=== PATIENT | male | born 1935 | race Caucasian/White ===

== ENCOUNTER → 2017-06-12 08:28 | Outpatient (CLI) | payer MEDICARE, BC, SELFPAY ==
[2017-06-12] VITALS (8 sets, daily range): BP systolic 103–150; BP diastolic 58–79; PULSE 60–76; RESP 16–18; TEMP 36.3–37.2; O2SAT 95–99; BMI 24.8
[2017-06-12] MEDS: Immune Globulin 20 gm Premixed Solution IV ×2 (08:46→11:05)
[2017-06-12 09:20] LABS: Anion Gap 9 (5-15); BUN 17 mg/dL (7-18); BUN/Creat Ratio 14.4 RATIO (10-20); Calcium,Total 8.8 mg/dL (8.5-10.1); Chloride 106 mmol/L (98-107); Creatinine, Serum 1.18 mg/dL (0.70-1.30); EST Glomerular Filtration Rate 63 mL/min (>60); Est Glom Filt Rate - Afr Amer 76 mL/min (>60); Estimated Creatinine Clearance 49.11 ml/min; Glucose 98 mg/dL (74-106); Sodium Level 139 mmol/L (136-145)
[2017-06-12] MEDS: Immune Globulin 10 gm Premixed Solution IV (14:05)
== END ==
PROVIDERS: Family Provider Family Medicine Geriatric Medicine; PCP Family Medicine Geriatric Medicine; Visit Provider Psychiatry & Neurology Neurology
DX: G61.81 Chronic inflammatory demyelinating polyneuritis (principal)
CPT/HCPCS: 96365; 80048; A4216; J1568

== ENCOUNTER → 2017-07-03 08:24 | Outpatient (CLI) | payer MEDICARE, BC, SELFPAY ==
[2017-07-03] VITALS (8 sets, daily range): BP systolic 131–171; BP diastolic 70–80; PULSE 61–70; RESP 16–18; TEMP 36.1–37.1; O2SAT 98–100; BMI 23.9
[2017-07-03] MEDS: Immune Globulin 20 gm Premixed Solution IV ×3 (08:42→12:25)
[2017-07-03 09:13] LABS: Anion Gap 8 (5-15); BUN 18 mg/dL (7-18); BUN/Creat Ratio 17.1 RATIO (10-20); Calcium,Total 8.6 mg/dL (8.5-10.1); Chloride 106 mmol/L (98-107); Creatinine, Serum 1.05 mg/dL (0.70-1.30); EST Glomerular Filtration Rate 72 mL/min (>60); Est Glom Filt Rate - Afr Amer 88 mL/min (>60); Estimated Creatinine Clearance 57.05 ml/min; Glucose 96 mg/dL (74-106); Potassium 5.4 mmol/L (3.5-5.1); Sodium Level 138 mmol/L (136-145)
[2017-07-03] MEDS: Immune Globulin 10 gm Premixed Solution IV (13:52)
== END ==
PROVIDERS: Family Provider Family Medicine Geriatric Medicine; PCP Family Medicine Geriatric Medicine; Visit Provider Psychiatry & Neurology Neurology
DX: G61.81 Chronic inflammatory demyelinating polyneuritis (principal)
CPT/HCPCS: 96365; 96366 ×2; 80048; A4216; J1568

== ENCOUNTER → 2017-07-24 08:36 | Outpatient (CLI) | payer MEDICARE, BC, SELFPAY ==
[2017-07-24] VITALS (8 sets, daily range): BP systolic 119–156; BP diastolic 60–79; PULSE 63–84; RESP 16–18; TEMP 36.4–37; O2SAT 95–100; BMI 24.3
[2017-07-24] MEDS: Immune Globulin 20 gm Premixed Solution IV ×3 (08:50→12:34)
[2017-07-24 09:14] LABS: Anion Gap 8 (5-15); BUN 15 mg/dL (7-18); BUN/Creat Ratio 14.6 RATIO (10-20); Calcium,Total 8.3 mg/dL (8.5-10.1); Chloride 108 mmol/L (98-107); Creatinine, Serum 1.03 mg/dL (0.70-1.30); EST Glomerular Filtration Rate 74 mL/min (>60); Est Glom Filt Rate - Afr Amer 89 mL/min (>60); Glucose 95 mg/dL (74-106); Potassium 4.2 mmol/L (3.5-5.1); Sodium Level 139 mmol/L (136-145)
[2017-07-24] MEDS: Immune Globulin 10 gm Premixed Solution IV (13:57)
== END ==
PROVIDERS: Family Provider Family Medicine Geriatric Medicine; PCP Family Medicine Geriatric Medicine; Visit Provider Psychiatry & Neurology Neurology
DX: G61.81 Chronic inflammatory demyelinating polyneuritis (principal)
CPT/HCPCS: 96365; 96366 ×2; 36415; 80048; A4216; J1568

== ENCOUNTER → 2017-08-14 08:33 | Outpatient (CLI) | payer MEDICARE, BC, SELFPAY ==
[2017-08-14] VITALS (8 sets, daily range): BP systolic 135–170; BP diastolic 70–82; PULSE 54–84; RESP 16–18; TEMP 36.3–36.9; O2SAT 96–99
[2017-08-14] MEDS: Immune Globulin 20 gm Premixed Solution 8.8 GM IV (09:13)
[2017-08-14 09:40] LABS: Anion Gap 8 (5-15); BUN 14 mg/dL (7-18); BUN/Creat Ratio 12.6 RATIO (10-20); Calcium,Total 8.6 mg/dL (8.5-10.1); Chloride 108 mmol/L (98-107); Creatinine, Serum 1.11 mg/dL (0.70-1.30); EST Glomerular Filtration Rate 68 mL/min (>60); Est Glom Filt Rate - Afr Amer 82 mL/min (>60); Glucose 102 mg/dL (74-106); Potassium 4.2 mmol/L (3.5-5.1); Sodium Level 138 mmol/L (136-145)
[2017-08-14] MEDS: Immune Globulin 20 gm Premixed Solution IV ×2 (11:35→13:11)
[2017-08-14] MEDS: Immune Globulin 10 gm Premixed Solution IV (14:40)
== END ==
PROVIDERS: Family Provider Family Medicine Geriatric Medicine; PCP Family Medicine Geriatric Medicine; Visit Provider Psychiatry & Neurology Neurology
DX: G61.81 Chronic inflammatory demyelinating polyneuritis (principal)
CPT/HCPCS: 96365; 96366; 80048; A4216; J1568

== ENCOUNTER → 2017-09-04 08:21 | Outpatient (CLI) | payer MEDICARE, BC, SELFPAY ==
[2017-09-04] VITALS (8 sets, daily range): BP systolic 129–163; BP diastolic 66–87; PULSE 57–68; RESP 16–163; TEMP 36.4–36.8; O2SAT 95–99; BMI 24.7
[2017-09-04 08:44] LABS: Anion Gap 8 (5-15); BUN 17 mg/dL (7-18); BUN/Creat Ratio 15.3 RATIO (10-20); Calcium,Total 8.7 mg/dL (8.5-10.1); Chloride 109 mmol/L (98-107); Creatinine, Serum 1.11 mg/dL (0.70-1.30); EST Glomerular Filtration Rate 68 mL/min (>60); Est Glom Filt Rate - Afr Amer 82 mL/min (>60); Estimated Creatinine Clearance 52.21 ml/min; Glucose 101 mg/dL (74-106); Potassium 3.9 mmol/L (3.5-5.1); Sodium Level 142 mmol/L (136-145)
[2017-09-04] MEDS: Immune Globulin 20 gm Premixed Solution IV ×3 (08:54→12:30)
[2017-09-04] MEDS: Immune Globulin 10 gm Premixed Solution IV (14:01)
== END ==
PROVIDERS: Family Provider Family Medicine Geriatric Medicine; PCP Family Medicine Geriatric Medicine; Visit Provider Psychiatry & Neurology Neurology
DX: G61.81 Chronic inflammatory demyelinating polyneuritis (principal)
CPT/HCPCS: 96365 ×2; 96366 ×2; 80048; A4216; J1568

== ENCOUNTER → 2017-09-26 08:39 | Outpatient (CLI) | payer MEDICARE, BC, SELFPAY ==
[2017-09-26] VITALS (8 sets, daily range): BP systolic 145–168; BP diastolic 69–84; PULSE 55–64; RESP 16–18; TEMP 36.1–36.8
[2017-09-26] MEDS: Immune Globulin 20 gm Premixed Solution IV ×3 (09:13→12:50)
[2017-09-26 10:00] LABS: Anion Gap 9 (5-15); BUN 13 mg/dL (7-18); Calcium,Total 8.5 mg/dL (8.5-10.1); Chloride 109 mmol/L (98-107); Creatinine, Serum 1.08 mg/dL (0.70-1.30); EST Glomerular Filtration Rate 70 mL/min (>60); Est Glom Filt Rate - Afr Amer 85 mL/min (>60); Glucose 100 mg/dL (74-106); Sodium Level 142 mmol/L (136-145)
[2017-09-26] MEDS: Immune Globulin 10 gm Premixed Solution IV (14:17)
== END ==
PROVIDERS: Family Provider Family Medicine Geriatric Medicine; PCP Family Medicine Geriatric Medicine; Visit Provider Psychiatry & Neurology Neurology
DX: G61.81 Chronic inflammatory demyelinating polyneuritis (principal)
CPT/HCPCS: 96365; 96366; 80048; A4216; J1568

== ENCOUNTER → 2017-10-31 10:09 | Outpatient (CLI) | payer MEDICARE, BC, SELFPAY ==
[2017-10-31 15:56] LABS: Absolute Lymphocyte Count 3.11 X10^3/ul (0.83-4.51); Absolute Neutrophil Count 4.1 X10^3/uL (2.0-7.7); Basophil# 0.03 X10^3/uL; Basophil% 0.4 % (0-1); Eosinophil# 0.22 X10^3/uL; Eosinophils% 2.6 % (0-5); Hematocrit 39.1 % (40-54); Hemoglobin 12.8 g/dl (13.0-16.5); Lymphocyte # 3.11 X10^3/ul (4.0); Lymphocyte % 37.4 % (19-41); Mean Corp Hgb Conc 32.7 g/gl (32-36); Mean Corpuscular Volume 91.6 fL (80-94); Mean Platelet Vol. 9.9 fl (6.2-12.0); Monocyte# 0.86 X10^3/uL; Monocyte% 10.3 % (0-10); Neutrophil # 4.09 X10^3/uL (2.7-7.7); Neutrophil % 49.2 % (47-70); Platelet Count 230 K/mm3 (150-450); RBC Distribution Width CV 14.4 % (11.6-14.6); RBC Distribution Width SD 48.4 fl (35.1-43.9); Red Blood Count 4.27 M/mm3 (4.6-6.2); White Blood Count 8.3 K/mm3 (4.4-11.0)
[2017-10-31 16:06] LABS: POSITIVE COUNT NO; POSITIVE DIFFERENTIAL NO; POSITIVE MORPHOLOGY NO
[2017-10-31 16:17] LABS: ALB/GLOB Ratio 0.9 RATIO (0.9-2.4); AST(SGOT) 19 U/L (15-37); Alanine Aminotransfer ALT/SGPT 20 U/L (16-61); Albumin, Serum 3.7 g/dL (3.2-5.0); Alkaline Phosphatase 66 U/L (45-117); Anion Gap 9 (5-15); BUN 18 mg/dL (7-18); BUN/Creat Ratio 17.6 RATIO (10-20); Calcium,Total 8.2 mg/dL (8.5-10.1); Chloride 109 mmol/L (98-107); Creatinine, Serum 1.02 mg/dL (0.70-1.30); EST Glomerular Filtration Rate 75 mL/min (>60); Est Glom Filt Rate - Afr Amer 90 mL/min (>60); Glucose 97 mg/dL (74-106); Protein, Total 7.7 g/dL (6.4-8.2); Sodium Level 142 mmol/L (136-145); Thyroid Stim Hormone (TSH) 2.03 uIU/mL (0.358-3.74)
[2017-11-01 10:45] LABS: Vitamin D,25 Hydroxy 12.2 ng/mL (29.95-100.01)
== END ==
PROVIDERS: Family Provider Family Medicine Geriatric Medicine; PCP Family Medicine Geriatric Medicine; Visit Provider Family Medicine Geriatric Medicine
DX: R53.83 Other fatigue (principal); E55.9 Vitamin D deficiency, unspecified
CPT/HCPCS: 36415; 80053; 82306; 84443; 85025

== ENCOUNTER → 2017-11-06 08:19 | Outpatient (CLI) | payer MEDICARE, BC, SELFPAY ==
[2017-11-06] VITALS (7 sets, daily range): BP systolic 123–174; BP diastolic 64–78; PULSE 61–70; RESP 16; TEMP 36.7–36.8; O2SAT 97; BMI 24.5
[2017-11-06] MEDS: Immune Globulin 20 gm Premixed Solution IV ×3 (09:10→12:57)
[2017-11-06 09:36] LABS: Anion Gap 10 (5-15); BUN 14 mg/dL (7-18); BUN/Creat Ratio 11.9 RATIO (10-20); Calcium,Total 8.8 mg/dL (8.5-10.1); Chloride 105 mmol/L (98-107); Creatinine, Serum 1.18 mg/dL (0.70-1.30); EST Glomerular Filtration Rate 63 mL/min (>60); Est Glom Filt Rate - Afr Amer 76 mL/min (>60); Estimated Creatinine Clearance 48.31 ml/min; Glucose 97 mg/dL (74-106); Potassium 4.5 mmol/L (3.5-5.1); Sodium Level 142 mmol/L (136-145)
[2017-11-06] MEDS: Immune Globulin 10 gm Premixed Solution IV (14:21)
== END ==
PROVIDERS: Family Provider Family Medicine Geriatric Medicine; PCP Family Medicine Geriatric Medicine; Visit Provider Psychiatry & Neurology Neurology
DX: G61.81 Chronic inflammatory demyelinating polyneuritis (principal)
CPT/HCPCS: 96365; 96366 ×2; 80048; A4216; J1568

== ENCOUNTER → 2017-12-18 08:10 | Outpatient (CLI) | payer MEDICARE, BC, SELFPAY ==
[2017-12-18] VITALS (8 sets, daily range): BP systolic 122–159; BP diastolic 65–78; PULSE 58–68; RESP 16–18; TEMP 35.9–36.8; O2SAT 99; BMI 24.5
[2017-12-18] MEDS: Immune Globulin 20 gm Premixed Solution IV ×3 (09:07→13:19)
[2017-12-18 09:32] LABS: Anion Gap 12 (5-15); BUN 13 mg/dL (7-18); BUN/Creat Ratio 12.6 RATIO (10-20); Calcium,Total 8.4 mg/dL (8.5-10.1); Chloride 107 mmol/L (98-107); Creatinine, Serum 1.03 mg/dL (0.70-1.30); EST Glomerular Filtration Rate 74 mL/min (>60); Est Glom Filt Rate - Afr Amer 89 mL/min (>60); Glucose 98 mg/dL (74-106); Potassium 4.1 mmol/L (3.5-5.1); Sodium Level 143 mmol/L (136-145)
[2017-12-18] MEDS: Immune Globulin 10 gm Premixed Solution IV (15:08)
== END ==
PROVIDERS: Family Provider Family Medicine Geriatric Medicine; PCP Family Medicine Geriatric Medicine; Visit Provider Psychiatry & Neurology Neurology
DX: G61.81 Chronic inflammatory demyelinating polyneuritis (principal)
CPT/HCPCS: 96365; 96366 ×2; 80048; A4216; J1568

== ENCOUNTER → 2018-01-29 08:21 | Outpatient (CLI) | payer MEDICARE, BC, SELFPAY ==
[2018-01-29] VITALS (9 sets, daily range): BP systolic 129–173; BP diastolic 71–95; PULSE 60–64; RESP 15–18; TEMP 36.4–37.1; O2SAT 94–97
[2018-01-29] MEDS: Immune Globulin 10 gm Premixed Solution IV ×3 (09:04→11:18)
[2018-01-29 10:07] LABS: Anion Gap 9 (5-15); BUN 15 mg/dL (7-18); BUN/Creat Ratio 14.3 RATIO (10-20); Calcium,Total 8.6 mg/dL (8.5-10.1); Chloride 104 mmol/L (98-107); Creatinine, Serum 1.05 mg/dL (0.70-1.30); EST Glomerular Filtration Rate 72 mL/min (>60); Est Glom Filt Rate - Afr Amer 87 mL/min (>60); Glucose 97 mg/dL (74-106); Potassium 4.1 mmol/L (3.5-5.1); Sodium Level 139 mmol/L (136-145)
[2018-01-29] MEDS: Immune Globulin 20 gm Premixed Solution IV ×2 (12:10→13:32)
[2018-03-12 11:22] VITALS: BP 158/76; PULSE 58; RESP 16; TEMP 36.9; O2SAT 97
== END ==
PROVIDERS: Family Provider Family Medicine Geriatric Medicine; PCP Family Medicine Geriatric Medicine; Visit Provider Psychiatry & Neurology Neurology
DX: G61.81 Chronic inflammatory demyelinating polyneuritis (principal)
CPT/HCPCS: 96365; 96366; 80048; A4216; J1568

== ENCOUNTER → 2018-03-12 08:09 | Outpatient (CLI) | payer MEDICARE, BC, SELFPAY ==
[2018-03-12] VITALS (8 sets, daily range): BP systolic 127–175; BP diastolic 57–76; PULSE 60–75; RESP 15–18; TEMP 36.6–36.9; O2SAT 96–100
[2018-03-12] MEDS: Immune Globulin 20 gm Premixed Solution IV ×3 (09:00→12:52)
[2018-03-12 09:18] LABS: Anion Gap 10 (5-15); BUN 16 mg/dL (7-18); BUN/Creat Ratio 13.6 RATIO (10-20); Calcium,Total 8.6 mg/dL (8.5-10.1); Chloride 105 mmol/L (98-107); Creatinine, Serum 1.18 mg/dL (0.70-1.30); EST Glomerular Filtration Rate 63 mL/min (>60); Est Glom Filt Rate - Afr Amer 76 mL/min (>60); Glucose 101 mg/dL (74-106); Potassium 4.6 mmol/L (3.5-5.1); Sodium Level 139 mmol/L (136-145)
[2018-03-12] MEDS: Immune Globulin 10 gm Premixed Solution IV (14:24)
== END ==
PROVIDERS: Family Provider Family Medicine Geriatric Medicine; PCP Family Medicine Geriatric Medicine; Referring Provider Family Medicine Geriatric Medicine; Visit Provider Family Medicine Geriatric Medicine
DX: G61.81 Chronic inflammatory demyelinating polyneuritis (principal)
CPT/HCPCS: 96365; 96366 ×3; 80048; A4216; J1568

== ENCOUNTER → 2018-05-08 14:24 | Outpatient (CLI) | payer MEDICARE, BC, SELFPAY ==
[2017-12-18 08:32] VITALS: BMI 24.5
[2018-05-08 15:38] LABS: Absolute Lymphocyte Count 4.28 X10^3/ul (0.83-4.51); Absolute Neutrophil Count 4.3 X10^3/uL (2.0-7.7); Basophil# 0.03 X10^3/uL; Basophil% 0.3 % (0-1); Eosinophil# 0.18 X10^3/uL; Eosinophils% 1.9 % (0-5); Hematocrit 40.7 % (40-54); Hemoglobin 13.1 g/dl (13.0-16.5); Lymphocyte # 4.28 X10^3/ul (4.0); Lymphocyte % 45.1 % (19-41); Mean Corp Hgb Conc 32.2 g/gl (32-36); Mean Corpuscular Hgb 29.9 pg (27.0-32.0); Mean Corpuscular Volume 92.9 fL (80-94); Mean Platelet Vol. 10.5 fl (6.2-12.0); Monocyte# 0.67 X10^3/uL; Monocyte% 7.1 % (0-10); Neutrophil # 4.32 X10^3/uL (2.7-7.7); Neutrophil % 45.4 % (47-70); Platelet Count 254 K/mm3 (150-450); RBC Distribution Width CV 14.2 % (11.6-14.6); RBC Distribution Width SD 48.2 fl (35.1-43.9); Red Blood Count 4.38 M/mm3 (4.6-6.2); White Blood Count 9.5 K/mm3 (4.4-11.0)
[2018-05-08 15:45] LABS: POSITIVE COUNT NO; POSITIVE DIFFERENTIAL NO; POSITIVE MORPHOLOGY NO
[2018-05-08 15:53] LABS: ALB/GLOB Ratio 0.8 RATIO (0.9-2.4); AST(SGOT) 19 U/L (15-37); Alanine Aminotransfer ALT/SGPT 22 U/L (16-61); Albumin, Serum 3.7 g/dL (3.2-5.0); Alkaline Phosphatase 62 U/L (45-117); Anion Gap 7 (5-15); BUN 16 mg/dL (7-18); Calcium,Total 8.5 mg/dL (8.5-10.1); Chloride 106 mmol/L (98-107); Creatinine, Serum 1.07 mg/dL (0.70-1.30); EST Glomerular Filtration Rate 71 mL/min (>60); Est Glom Filt Rate - Afr Amer 85 mL/min (>60); Globulin 4.7 g/dL (2.2-4.2); Glucose 94 mg/dL (74-106); Potassium 4.4 mmol/L (3.5-5.1); Protein, Total 8.4 g/dL (6.4-8.2); Sodium Level 138 mmol/L (136-145); Thyroid Stim Hormone (TSH) 2.25 uIU/mL (0.358-3.74); Uric Acid 6.8 mg/dL (3.5-7.2)
== END ==
PROVIDERS: Family Provider Family Medicine Geriatric Medicine; PCP Family Medicine Geriatric Medicine; Visit Provider Family Medicine Geriatric Medicine
DX: I12.9 Hypertensive chronic kidney disease with stage 1 through stage 4 chronic kidney disease, or unspecified chronic kidney disease (principal); N18.3 Chronic kidney disease, stage 3 (moderate); M10.9 Gout, unspecified
CPT/HCPCS: 36415; 80053; 84443; 84550; 85025

== ENCOUNTER → 2018-07-16 08:38 | Outpatient (CLI) | payer MEDICARE, BC, SELFPAY ==
[2018-07-16 09:08] VITALS: BP 145/79; PULSE 60; RESP 16; TEMP 36.7; BMI 24.8
[2018-07-16] MEDS: Immune Globulin 20 gm Premixed Solution IV ×3 (09:08→12:43)
[2018-07-16 09:58] LABS: Anion Gap 4 (5-15); BUN 14 mg/dL (7-18); BUN/Creat Ratio 13.1 RATIO (10-20); Calcium,Total 8.1 mg/dL (8.5-10.1); Chloride 110 mmol/L (98-107); Creatinine, Serum 1.07 mg/dL (0.70-1.30); EST Glomerular Filtration Rate 71 mL/min (>60); Est Glom Filt Rate - Afr Amer 85 mL/min (>60); Estimated Creatinine Clearance 53.27 ml/min; Glucose 99 mg/dL (74-106); Sodium Level 138 mmol/L (136-145)
[2018-07-16] MEDS: Immune Globulin 10 gm Premixed Solution IV (14:20)
== END ==
PROVIDERS: Family Provider Family Medicine Geriatric Medicine; PCP Family Medicine Geriatric Medicine; Visit Provider Psychiatry & Neurology Neurology
DX: G61.81 Chronic inflammatory demyelinating polyneuritis (principal)
CPT/HCPCS: 96365; 96366 ×2; 80048; A4216; J1568

== ENCOUNTER → 2018-08-27 08:25 | Outpatient (CLI) | payer MEDICARE, BC, SELFPAY ==
[2018-07-16 09:08] VITALS: BMI 24.8
[2018-08-27 08:29] VITALS: BP 178/74; PULSE 70; RESP 16; TEMP 36.2; O2SAT 96; BMI 24.5
[2018-08-27] MEDS: Immune Globulin 20 gm Premixed Solution IV ×3 (08:46→12:16)
[2018-08-27 09:48] LABS: Anion Gap 7 (5-15); BUN 16 mg/dL (7-18); BUN/Creat Ratio 15.1 RATIO (10-20); Calcium,Total 8.6 mg/dL (8.5-10.1); Chloride 109 mmol/L (98-107); Creatinine, Serum 1.06 mg/dL (0.70-1.30); EST Glomerular Filtration Rate 71 mL/min (>60); Est Glom Filt Rate - Afr Amer 86 mL/min (>60); Estimated Creatinine Clearance 55.58 ml/min; Glucose 100 mg/dL (74-106); Potassium 5.4 mmol/L (3.5-5.1); Sodium Level 140 mmol/L (136-145)
[2018-08-27] MEDS: Immune Globulin 5 GM Premixed Solution IV ×2 (13:40→14:05)
== END ==
PROVIDERS: Family Provider Family Medicine Geriatric Medicine; PCP Family Medicine Geriatric Medicine; Referring Provider Psychiatry & Neurology Neurology; Visit Provider Psychiatry & Neurology Neurology
DX: G61.81 Chronic inflammatory demyelinating polyneuritis (principal)
CPT/HCPCS: 96365; 96366 ×2; 80048; A4216; J1568

== ENCOUNTER → 2018-10-08 08:42 | Outpatient (CLI) | payer MEDICARE, BC, SELFPAY ==
[2018-08-27 08:29] VITALS: BMI 24.5
[2018-10-08 09:00] VITALS: BP 166/81; PULSE 61; RESP 18; TEMP 36.7; O2SAT 97; BMI 24.5
[2018-10-08] MEDS: Immune Globulin 20 gm Premixed Solution IV ×3 (09:10→12:53)
[2018-10-08 09:32] LABS: Anion Gap 7 (5-15); BUN 10 mg/dL (7-18); BUN/Creat Ratio 8.9 RATIO (10-20); Calcium,Total 8.3 mg/dL (8.5-10.1); Chloride 106 mmol/L (98-107); Creatinine, Serum 1.12 mg/dL (0.70-1.30); EST Glomerular Filtration Rate 67 mL/min (>60); Est Glom Filt Rate - Afr Amer 81 mL/min (>60); Estimated Creatinine Clearance 51.73 ml/min; Glucose 105 mg/dL (74-106); Potassium 3.9 mmol/L (3.5-5.1); Sodium Level 139 mmol/L (136-145)
[2018-10-08] MEDS: Immune Globulin 10 gm Premixed Solution IV (14:21)
== END ==
PROVIDERS: Family Provider Family Medicine Geriatric Medicine; PCP Family Medicine Geriatric Medicine; Referring Provider Psychiatry & Neurology Neurology; Visit Provider Psychiatry & Neurology Neurology
DX: G61.81 Chronic inflammatory demyelinating polyneuritis (principal)
CPT/HCPCS: 96365; 96366; 80048; A4216; J1568

== ENCOUNTER → 2018-11-19 08:13 | Outpatient (CLI) | payer MEDICARE, BC, SELFPAY ==
[2018-10-08 09:00] VITALS: BMI 24.5
[2018-11-19 08:24] VITALS: BP 186/69; PULSE 61; RESP 16; TEMP 36.2; O2SAT 95; BMI 24.5
[2018-11-19] MEDS: Immune Globulin 20 gm Premixed Solution IV ×3 (08:42→12:34)
[2018-11-19] MEDS: Immune Globulin 10 gm Premixed Solution IV (14:27)
== END ==
PROVIDERS: Family Provider Family Medicine Geriatric Medicine; PCP Family Medicine Geriatric Medicine; Referring Provider Psychiatry & Neurology Neurology; Visit Provider Psychiatry & Neurology Neurology
DX: G61.81 Chronic inflammatory demyelinating polyneuritis (principal)
CPT/HCPCS: 96365; 96366 ×2; A4216; J1568

== ENCOUNTER → 2019-01-01 07:43 | Outpatient (CLI) | payer MEDICARE, BC, SELFPAY ==
[2018-11-19 08:24] VITALS: BMI 24.5
[2019-01-01 08:03] VITALS: BP 155/86; PULSE 68; RESP 16; TEMP 37.1; O2SAT 97; BMI 22.7
[2019-01-01] MEDS: Immune Globulin 20 gm Premixed Solution 35 BAG IV (08:38)
[2019-01-01 08:44] LABS: Anion Gap 4 (5-15); BUN 11 mg/dL (7-18); BUN/Creat Ratio 10.1 RATIO (10-20); Calcium,Total 8.4 mg/dL (8.5-10.1); Chloride 110 mmol/L (98-107); Creatinine, Serum 1.09 mg/dL (0.70-1.30); EST Glomerular Filtration Rate 69 mL/min (>60); Est Glom Filt Rate - Afr Amer 83 mL/min (>60); Estimated Creatinine Clearance 52.51 ml/min; Glucose 110 mg/dL (74-106); Potassium 3.9 mmol/L (3.5-5.1); Sodium Level 139 mmol/L (136-145)
[2019-01-01] MEDS: Immune Globulin 20 gm Premixed Solution 140 BAG IV ×2 (10:48→12:20)
[2019-01-01] MEDS: Immune Globulin 10 gm Premixed Solution 140 BAG IV (13:49)
== END ==
PROVIDERS: Family Provider Family Medicine Geriatric Medicine; PCP Family Medicine Geriatric Medicine; Referring Provider Psychiatry & Neurology Neurology; Visit Provider Psychiatry & Neurology Neurology
DX: G61.81 Chronic inflammatory demyelinating polyneuritis (principal)
CPT/HCPCS: 96365; 96366 ×2; 80048; A4216; J1568

== ENCOUNTER → 2019-02-11 08:18 | Outpatient (CLI) | payer MEDICARE, BC, SELFPAY ==
[2019-01-01 08:03] VITALS: BMI 22.7
[2019-02-11 08:29] VITALS: BP 162/79; PULSE 59; RESP 18; TEMP 36.1; O2SAT 99; BMI 23.6
[2019-02-11] MEDS: Immune Globulin 20 gm Premixed Solution 35 BAG IV (08:56)
[2019-02-11 09:10] LABS: Anion Gap 6 (5-15); BUN 16 mg/dL (7-18); BUN/Creat Ratio 15.4 RATIO (10-20); Calcium,Total 8.3 mg/dL (8.5-10.1); Chloride 109 mmol/L (98-107); Creatinine, Serum 1.04 mg/dL (0.70-1.30); EST Glomerular Filtration Rate 73 mL/min (>60); Est Glom Filt Rate - Afr Amer 88 mL/min (>60); Estimated Creatinine Clearance 55.71 ml/min; Glucose 106 mg/dL (74-106); Sodium Level 139 mmol/L (136-145)
[2019-02-11] MEDS: Immune Globulin 20 gm Premixed Solution 140 BAG IV ×2 (11:19→12:57)
[2019-02-11] MEDS: Immune Globulin 10 gm Premixed Solution 140 BAG IV (14:28)
--- NOTE | 2019-02-11 15:40 | NURSING ---
Unable to reach Dr. Ayala. Pt now vomiting. Rigors continue; [employer] called.
== END ==
PROVIDERS: Family Provider Family Medicine Geriatric Medicine; PCP Family Medicine Geriatric Medicine; Referring Provider Psychiatry & Neurology Neurology; Visit Provider Psychiatry & Neurology Neurology
DX: G61.81 Chronic inflammatory demyelinating polyneuritis (principal)
CPT/HCPCS: 96365; 96366 ×6; 80048; A4216; J1568

== ENCOUNTER 2019-02-11 16:13 | Emergency (ER) | payer MEDICARE, BC, SELFPAY ==
[2019-02-11 08:29] VITALS: BMI 23.6
[2019-02-11 16:14] VITALS: BP 182/87; BP 191/88; PULSE 100; PULSE 99; RESP 17; RESP 18; TEMP 37.7; O2SAT 97; BMI 25.2
[2019-02-11 16:24] VITALS: BP 182/87; PULSE 97; RESP 18; TEMP 37.7; O2SAT 95
--- NOTE | 2019-02-11 16:41 | ED.DCSUM_ITS ---
- ER Visit Summary Date of Service: 02/11/19 Chief Complaint: Nausea, vomiting, and shaking History of Present Illness: The patient is a 83 M who presents with nausea, vomiting, and shaking that began today. Patient was getting an infusion of IV immunoglobulin when he developed nausea and had one episode of vomiting. Patient states he began shaking all over. Patient denies any hematemesis or coffee-ground emesis. Patient admits to a fever of 100.7 during the infusion. Patient was then referred to the emergency department. Patient admits to some diffuse abdominal pain. Patient denies any diarrhea. Patient does admit to headache. Patient denies any chest pain or shortness of breath. Physical Examination: Vital signs are stable. Patient is afebrile. Patient is in no acute distress. Oral mucosa is pink and moist. Neck is supple. Trachea is midline. There is no JVD noted. Heart was regular rate and rhythm. Lungs are clear and equal bilaterally. Abdomen is soft. Bowel sounds are normal. There is no tenderness. There is no guarding noted. Skin is warm dry. Cranial nerves II through XII are intact. There are no focal motor or sensory deficits noted. Test Results: CBC and basic metabolic profile were essentially within normal tomas its. Urinalysis does not show any evidence of urinary tract infection. There is glucose in the urine. Emergency Department Course and Treatment: Patient was feeling better on reevaluation. Patient wants to go home. Patient was instructed to follow-up with his primary care physician and neurologist as scheduled. Patient understands and is agreeable with the plan. All questions were answered. Disposition: Discharge home Impression: Adverse medication reaction This note was generated with [employer] dictation software. It may contain incorrect words, spelling, and punctuation that were not noted in review of the chart prior to signing ED Disposition - Plan for ED Patient: Disposition: Home or Assisted Living Diagnosis: Adverse drug reaction Instructions: DRUG REACTION, Other Referrals: Tay Khoury Chi, MD [Primary Care Provider] - Keep [facility] appointment Se Ayala MD [STAFF PHYSICIAN] - Keep E[facility] appointment
[2019-02-11] MEDS: Ondansetron 4 MG/2 ML Vial IV (16:51)
[2019-02-11 17:23] LABS: Bacteria 0 SEEN /hpf (None Seen); Mucous, Urine 0 SEEN /hpf (<or=2+); White Blood Cells 0 SEEN /hpf (0-5)
[2019-02-11 17:34] LABS: Absolute Lymphocyte Count 0.56 X10^3/uL (0.83-4.51); Absolute Neutrophil Count 7.3 X10^3/uL (2.0-7.7); Basophil# 0.02 X10^3/uL; Basophil% 0.2 % (0-1); Eosinophil# 0.03 X10^3/uL; Eosinophils% 0.4 % (0-5); Hematocrit 37.9 % (40-54); Hemoglobin 12.6 g/dL (13.0-16.5); Lymphocyte # 0.56 X10^3/ul (4.0); Lymphocyte % 6.6 % (19-41); Mean Corp Hgb Conc 33.2 g/dL (32-36); Mean Corpuscular Hgb 30.7 pg (27.0-32.0); Mean Corpuscular Volume 92.4 fL (80-94); Mean Platelet Vol. 10.5 fl (6.2-12.0); Monocyte# 0.61 X10^3/uL; Monocyte% 7.2 % (0-10); NRBC Flagged by Analyzer 0 % (0-5); Neutrophil # 7.28 X10^3/uL (2.7-7.7); Neutrophil % 85.2 % (47-70); POSITIVE DIFFERENTIAL YES; Platelet Count 178 K/mm3 (150-450); RBC Distribution Width CV 13.8 % (11.6-14.6); RBC Distribution Width SD 46.8 fl (35.1-43.9); White Blood Count 8.5 K/mm3 (4.4-11.0)
[2019-02-11 17:36] LABS: Color, Urine Yellow (Yellow); Glucose, Dipstick 1000 mg/dl (Normal); Ketone-Dipstick Negative (Negative); Leukocyte Esterase-Dipstick Negative /ul (Negative); Nitrite-Dipstick Negative (Negative); Occult Blood-Urine 25 /ul (Negative); Protein-Dipstick 30 mg/dl (Negative); Urine Bilirubin Dipstick Negative (Negative); Urine Clarity Sl. Cloudy (Clear); Urine Urobilinogen Normal (Normal)
[2019-02-11 17:44] LABS: Differential Indicated SCAN CRITERIA MET
[2019-02-11 17:55] LABS: ALB/GLOB Ratio 0.6 RATIO (0.9-2.4); AST(SGOT) 16 U/L (15-37); Alanine Aminotransfer ALT/SGPT 16 U/L (16-61); Albumin, Serum 3.4 g/dL (3.2-5.0); Alkaline Phosphatase 62 U/L (45-117); Anion Gap 8 (5-15); BUN 14 mg/dL (7-18); BUN/Creat Ratio 12.4 RATIO (10-20); Calcium,Total 8.3 mg/dL (8.5-10.1); Chloride 102 mmol/L (98-107); Creatinine, Serum 1.13 mg/dL (0.70-1.30); EST Glomerular Filtration Rate 66 mL/min (>60); Est Glom Filt Rate - Afr Amer 80 mL/min (>60); Globulin 5.7 g/dL (2.2-4.2); Glucose 113 mg/dL (74-106); Lipase 195 U/L (73-393); Potassium 3.9 mmol/L (3.5-5.1); Protein, Total 9.1 g/dL (6.4-8.2); Sodium Level 135 mmol/L (136-145)
[2019-02-11 18:03] LABS: Amorphous Sediment 1+ URATE; Red Blood Cells-Urine 0-5 SEEN /hpf (0-5); Squamous Epithelial Cells - UA 0-5 SEEN /hpf (0-5)
[2019-02-11 18:19] VITALS: BP 139/75; PULSE 92; RESP 16; TEMP 37.4; O2SAT 96
[2019-02-11 18:29] LABS: Differential Comment SCANNED; Platelet Estimate ADEQUATE (ADEQ); Red Cell Morphology NORM C+C NORMAL (NORM C&C)
== END 2019-02-11 19:12 | disposition home or self-care (01) ==
PROVIDERS: Emergency Provider Emergency Medicine; Family Provider Family Medicine Geriatric Medicine; PCP Family Medicine Geriatric Medicine
DX: R11.2 Nausea with vomiting, unspecified (principal); R51 Headache; R10.9 Unspecified abdominal pain; R50.9 Fever, unspecified; M54.2 Cervicalgia; T50.Z15A Adverse effect of immunoglobulin, initial encounter; Y92.9 Unspecified place or not applicable; G61.81 Chronic inflammatory demyelinating polyneuritis; E78.00 Pure hypercholesterolemia, unspecified; E03.9 Hypothyroidism, unspecified; Z79.82 Long term (current) use of aspirin; Z79.899 Other long term (current) drug therapy
CPT/HCPCS: 80048; 80053; 81001; 83690; 85025; 96374; 99282; A4216; J1568; J2405

== ENCOUNTER → 2019-03-25 08:01 | Outpatient (CLI) | payer MEDICARE, BC, SELFPAY ==
[2019-03-25 10:50] VITALS: BP 180/77; PULSE 62; RESP 16; TEMP 36.6; O2SAT 97; BMI 24.7
[2019-03-25] MEDS: Immune Globulin 20 gm Premixed Solution 35 BAG IV (11:11)
[2019-03-25 11:39] LABS: Anion Gap 6 (5-15); BUN 16 mg/dL (7-18); BUN/Creat Ratio 14.8 RATIO (10-20); Calcium,Total 8.5 mg/dL (8.5-10.1); Chloride 110 mmol/L (98-107); Creatinine, Serum 1.08 mg/dL (0.70-1.30); EST Glomerular Filtration Rate 70 mL/min (>60); Est Glom Filt Rate - Afr Amer 84 mL/min (>60); Estimated Creatinine Clearance 53.64 ml/min; Glucose 135 mg/dL (74-106); Potassium 3.8 mmol/L (3.5-5.1); Sodium Level 142 mmol/L (136-145)
[2019-03-25] MEDS: Immune Globulin 10 gm Premixed Solution 140 BAG IV (13:29)
[2019-03-25] MEDS: Immune Globulin 5 GM Premixed Solution 140 BAG IV (14:24)
== END ==
PROVIDERS: Family Provider Family Medicine Geriatric Medicine; PCP Family Medicine Geriatric Medicine; Referring Provider Psychiatry & Neurology Neurology; Visit Provider Psychiatry & Neurology Neurology
DX: G61.81 Chronic inflammatory demyelinating polyneuritis (principal)
CPT/HCPCS: 96365; 96366 ×2; 80048; A4216; J1568

== ENCOUNTER → 2019-05-06 07:33 | Outpatient (CLI) | payer MEDICARE, BC, SELFPAY ==
[2019-03-25 10:50] VITALS: BMI 24.7
[2019-05-06 07:57] VITALS: BP 170/80; PULSE 60; RESP 16; TEMP 36; O2SAT 100; BMI 23.6
[2019-05-06] MEDS: Immune Globulin 20 gm Premixed Solution 35 BAG IV (08:24)
[2019-05-06] MEDS: Immune Globulin 10 gm Premixed Solution 140 BAG IV (10:41)
[2019-05-06] MEDS: Immune Globulin 5 GM Premixed Solution 140 BAG IV (11:27)
== END ==
PROVIDERS: Family Provider Family Medicine Geriatric Medicine; PCP Family Medicine Geriatric Medicine; Referring Provider Psychiatry & Neurology Neurology; Visit Provider Psychiatry & Neurology Neurology
DX: G61.81 Chronic inflammatory demyelinating polyneuritis (principal)
CPT/HCPCS: 96365; 96366; A4216; J1568

== ENCOUNTER → 2019-05-07 15:25 | Outpatient (CLI) | payer MEDICARE, BC, SELFPAY ==
[2019-05-06 07:57] VITALS: BMI 23.6
[2019-05-07 17:19] LABS: Absolute Lymphocyte Count 1.98 X10^3/uL (0.83-4.51); Absolute Neutrophil Count 3.6 X10^3/uL (2.0-7.7); Basophil# 0.04 X10^3/uL; Basophil% 0.6 % (0-1); Eosinophil# 0.14 X10^3/uL; Eosinophils% 2.1 % (0-5); Hematocrit 42.5 % (40-54); Hemoglobin 13.7 g/dL (13.0-16.5); Lymphocyte # 1.98 X10^3/ul (4.0); Mean Corp Hgb Conc 32.2 g/dL (32-36); Mean Corpuscular Hgb 29.8 pg (27.0-32.0); Mean Corpuscular Volume 92.4 fL (80-94); Mean Platelet Vol. 10.3 fl (6.2-12.0); Monocyte# 0.86 X10^3/uL; NRBC Flagged by Analyzer 0 % (0-5); Neutrophil # 3.58 X10^3/uL (2.7-7.7); Neutrophil % 54.1 % (47-70); Platelet Count 235 K/mm3 (150-450); RBC Distribution Width CV 13.9 % (11.6-14.6); RBC Distribution Width SD 47.2 fl (35.1-43.9); White Blood Count 6.6 K/mm3 (4.4-11.0)
[2019-05-07 17:38] LABS: Vitamin D,25 Hydroxy 23.3 ng/mL (29.95-100.01)
[2019-05-07 17:39] LABS: ALB/GLOB Ratio 0.7 RATIO (0.9-2.4); AST(SGOT) 23 U/L (15-37); Alanine Aminotransfer ALT/SGPT 24 U/L (16-61); Albumin, Serum 3.6 g/dL (3.2-5.0); Alkaline Phosphatase 65 U/L (45-117); Anion Gap 5 (5-15); BUN 14 mg/dL (7-18); BUN/Creat Ratio 11.5 RATIO (10-20); Calcium,Total 8.7 mg/dL (8.5-10.1); Chloride 104 mmol/L (98-107); Creatinine, Serum 1.22 mg/dL (0.70-1.30); EST Glomerular Filtration Rate 61 mL/min (>60); Est Glom Filt Rate - Afr Amer 73 mL/min (>60); Globulin 4.9 g/dL (2.2-4.2); Glucose 94 mg/dL (74-106); Potassium 4.4 mmol/L (3.5-5.1); Protein, Total 8.5 g/dL (6.4-8.2); Sodium Level 137 mmol/L (136-145); Thyroid Stim Hormone (TSH) 2.72 uIU/mL (0.358-3.74)
== END ==
PROVIDERS: Family Provider Family Medicine Geriatric Medicine; PCP Family Medicine Geriatric Medicine; Visit Provider Family Medicine Geriatric Medicine
DX: E55.9 Vitamin D deficiency, unspecified (principal); M10.9 Gout, unspecified; R53.83 Other fatigue
CPT/HCPCS: 36415; 80053; 82306; 84443; 85025

== ENCOUNTER → 2019-06-17 | Outpatient (CLI) | payer MEDICARE, BC, SELFPAY ==
[2019-05-06 07:57] VITALS: BMI 23.6
[2019-06-17 10:15] VITALS: BP 176/89; PULSE 62; RESP 16; O2SAT 100; BMI 24.5
[2019-06-17] MEDS: Immune Globulin 20 gm Premixed Solution 35 BAG IV (10:15)
[2019-06-17 10:39] LABS: Anion Gap 5 (5-15); BUN 13 mg/dL (7-18); Calcium,Total 8.6 mg/dL (8.5-10.1); Chloride 108 mmol/L (98-107); Creatinine, Serum 1.18 mg/dL (0.70-1.30); EST Glomerular Filtration Rate 63 mL/min (>60); Est Glom Filt Rate - Afr Amer 76 mL/min (>60); Glucose 105 mg/dL (74-106); Potassium 4.1 mmol/L (3.5-5.1); Sodium Level 139 mmol/L (136-145)
[2019-06-17] MEDS: Immune Globulin 20 gm Premixed Solution 140 BAG IV (12:31)
[2019-06-17] MEDS: Immune Globulin 10 gm Premixed Solution 140 BAG IV (13:58)
== END | disposition home or self-care (01) ==
PROVIDERS: Clinical Nurse Specialist Acute Care; Family Provider Family Medicine Geriatric Medicine; PCP Family Medicine Geriatric Medicine; Referring Provider Psychiatry & Neurology Neurology; Visit Provider Psychiatry & Neurology Neurology
DX: G61.81 Chronic inflammatory demyelinating polyneuritis (principal)
CPT/HCPCS: 96365; 96366; 80048; A4216; J1568

== ENCOUNTER → 2019-07-30 | Outpatient (CLI) | payer MEDICARE, BC, SELFPAY ==
[2019-05-06 07:57] VITALS: BMI 23.6
[2019-06-17 10:15] VITALS: BMI 24.5
[2019-07-30 10:17] VITALS: BP 166/85; PULSE 65; RESP 16; TEMP 36.8; O2SAT 94; BMI 23.6
[2019-07-30] MEDS: Immune Globulin 20 gm Premixed Solution 33 BAG IV (10:41)
[2019-07-30 10:49] LABS: Anion Gap 5 (5-15); BUN 15 mg/dL (7-18); BUN/Creat Ratio 12.6 RATIO (10-20); Calcium,Total 8.7 mg/dL (8.5-10.1); Chloride 106 mmol/L (98-107); Creatinine, Serum 1.19 mg/dL (0.70-1.30); EST Glomerular Filtration Rate 62 mL/min (>60); Est Glom Filt Rate - Afr Amer 75 mL/min (>60); Estimated Creatinine Clearance 48.68 ml/min; Glucose 108 mg/dL (74-106); Potassium 5.1 mmol/L (3.5-5.1); Sodium Level 139 mmol/L (136-145)
[2019-07-30] MEDS: Immune Globulin 20 gm Premixed Solution 132 BAG IV (12:52)
[2019-07-30] MEDS: Immune Globulin 10 gm Premixed Solution 132 BAG IV (14:33)
== END | disposition home or self-care (01) ==
LOC: MEDOUTP 09:40
PROVIDERS: Clinical Nurse Specialist Acute Care; PCP Family Medicine Geriatric Medicine; Referring Provider Psychiatry & Neurology Neurology; Visit Provider Psychiatry & Neurology Neurology
DX: G61.81 Chronic inflammatory demyelinating polyneuritis (principal)
CPT/HCPCS: 96365; 96366; 80048; J1568

== ENCOUNTER → 2019-09-10 | Outpatient (CLI) | payer MEDICARE, BC, SELFPAY ==
[2019-06-17 10:15] VITALS: BMI 24.5
[2019-07-30 10:17] VITALS: BMI 23.6
[2019-09-10] MEDS: 0.9% NaCl Peripheral Flush Adult/Peds IV (10:15)
[2019-09-10] MEDS: Immune Globulin 20 gm Premixed Solution 33 BAG IV (10:16)
[2019-09-10 10:19] VITALS: BP 172/79; PULSE 68; RESP 16; TEMP 36.7; O2SAT 100; BMI 23.9
[2019-09-10 10:51] LABS: Anion Gap 11 (5-15); BUN 13 mg/dL (7-18); BUN/Creat Ratio 10.7 RATIO (10-20); Calcium,Total 8.5 mg/dL (8.5-10.1); Chloride 105 mmol/L (98-107); Creatinine, Serum 1.21 mg/dL (0.70-1.30); EST Glomerular Filtration Rate 61 mL/min (>60); Est Glom Filt Rate - Afr Amer 74 mL/min (>60); Estimated Creatinine Clearance 46.32 ml/min; Glucose 125 mg/dL (74-106); Potassium 4.1 mmol/L (3.5-5.1); Sodium Level 141 mmol/L (136-145)
[2019-09-10] MEDS: Immune Globulin 20 gm Premixed Solution 132 BAG IV (12:30)
[2019-09-10] MEDS: Immune Globulin 10 gm Premixed Solution 132 BAG IV (14:19)
[2019-09-10 15:10] VITALS: BP 173/72; PULSE 56; RESP 16
== END | disposition home or self-care (01) ==
LOC: MEDOUTP 09:59
PROVIDERS: PCP Family Medicine Geriatric Medicine; Referring Provider Psychiatry & Neurology Neurology; Visit Provider Psychiatry & Neurology Neurology
DX: G61.81 Chronic inflammatory demyelinating polyneuritis (principal)
CPT/HCPCS: 96365; 96366; 80048; A4216; J1568

== ENCOUNTER → 2019-10-22 | Outpatient (CLI) | payer MEDICARE, BC, SELFPAY ==
[2019-07-30 10:17] VITALS: BMI 23.6
[2019-09-10 10:19] VITALS: BMI 23.9
[2019-10-22 09:53] VITALS: BP 154/87; PULSE 68; RESP 16; TEMP 36.6; O2SAT 98; BMI 23.9
[2019-10-22] MEDS: 0.9% NaCl Peripheral Flush Adult/Peds IV (10:03)
[2019-10-22] MEDS: Immune Globulin 20 gm Premixed Solution 33 BAG IV (10:08)
[2019-10-22 10:38] LABS: Anion Gap 8 (5-15); BUN 12 mg/dL (7-18); BUN/Creat Ratio 11.1 RATIO (10-20); Calcium,Total 8.8 mg/dL (8.5-10.1); Chloride 105 mmol/L (98-107); Creatinine, Serum 1.08 mg/dL (0.70-1.30); EST Glomerular Filtration Rate 70 mL/min (>60); Est Glom Filt Rate - Afr Amer 84 mL/min (>60); Estimated Creatinine Clearance 51.02 ml/min; Glucose 114 mg/dL (74-106); Potassium 4.1 mmol/L (3.5-5.1); Sodium Level 140 mmol/L (136-145)
[2019-10-22] MEDS: Immune Globulin 20 gm Premixed Solution 165 BAG IV (12:29)
[2019-10-22] MEDS: Immune Globulin 10 gm Premixed Solution 132 BAG IV (14:05)
[2019-10-22 15:06] VITALS: BP 171/90; PULSE 78; RESP 18; TEMP 36.4
== END | disposition home or self-care (01) ==
LOC: MEDOUTP 09:44
PROVIDERS: Clinical Nurse Specialist Acute Care; PCP Family Medicine Geriatric Medicine; Referring Provider Psychiatry & Neurology Neurology; Visit Provider Psychiatry & Neurology Neurology
DX: G61.81 Chronic inflammatory demyelinating polyneuritis (principal)
CPT/HCPCS: 96365; 96366; 80048; A4216; J1568

== ENCOUNTER → 2019-11-12 | Outpatient (CLI) | payer MEDICARE, BC, SELFPAY ==
[2019-10-22 09:53] VITALS: BMI 23.9
[2019-11-12 16:56] LABS: Absolute Lymphocyte Count 3.45 X10^3/uL (0.83-4.51); Absolute Neutrophil Count 4.1 X10^3/uL (2.0-7.7); Basophil# 0.04 X10^3/uL; Basophil% 0.5 % (0-1); Eosinophil# 0.23 X10^3/uL; Eosinophils% 2.6 % (0-5); Hematocrit 42.3 % (40-54); Hemoglobin 13.4 g/dL (13.0-16.5); Lymphocyte # 3.45 X10^3/ul (4.0); Lymphocyte % 39.1 % (19-41); Mean Corp Hgb Conc 31.7 g/dL (32-36); Mean Corpuscular Hgb 30.3 pg (27.0-32.0); Mean Corpuscular Volume 95.7 fL (80-94); Mean Platelet Vol. 10.9 fl (6.2-12.0); Monocyte# 1.03 X10^3/uL; Monocyte% 11.7 % (0-10); NRBC Flagged by Analyzer 0 % (0-5); Neutrophil # 4.05 X10^3/uL (2.7-7.7); Neutrophil % 45.9 % (47-70); Platelet Count 249 K/mm3 (150-450); RBC Distribution Width CV 14.1 % (11.6-14.6); RBC Distribution Width SD 49.1 fl (35.1-43.9); Red Blood Count 4.42 M/mm3 (4.6-6.2); White Blood Count 8.8 K/mm3 (4.4-11.0)
[2019-11-12 17:11] LABS: Vitamin D,25 Hydroxy 43.5 ng/mL
[2019-11-12 17:28] LABS: ALB/GLOB Ratio 0.8 RATIO (0.9-2.4); AST(SGOT) 23 U/L (15-37); Alanine Aminotransfer ALT/SGPT 22 U/L (16-61); Albumin, Serum 3.7 g/dL (3.2-5.0); Alkaline Phosphatase 67 U/L (45-117); Anion Gap 7 (5-15); BUN 19 mg/dL (7-18); BUN/Creat Ratio 15.8 RATIO (10-20); Calcium,Total 8.7 mg/dL (8.5-10.1); Chloride 106 mmol/L (98-107); EST Glomerular Filtration Rate 62 mL/min (>60); Est Glom Filt Rate - Afr Amer 75 mL/min (>60); Globulin 4.5 g/dL (2.2-4.2); Glucose 94 mg/dL (74-106); Potassium 4.8 mmol/L (3.5-5.1); Protein, Total 8.2 g/dL (6.4-8.2); Sodium Level 138 mmol/L (136-145); Uric Acid 8.2 mg/dL (3.5-7.2)
== END | disposition home or self-care (01) ==
LOC: POLAB3 14:17
PROVIDERS: PCP Family Medicine Geriatric Medicine; Visit Provider Family Medicine Geriatric Medicine
DX: E55.9 Vitamin D deficiency, unspecified (principal); I10 Essential (primary) hypertension; M10.9 Gout, unspecified
CPT/HCPCS: 36415; 80053; 82306; 84443; 84550; 85025

== ENCOUNTER → 2019-12-04 08:28 | Outpatient (CLI) | payer MEDICARE, BC, SELFPAY ==
[2019-09-10 10:19] VITALS: BMI 23.9
[2019-10-22 09:53] VITALS: BMI 23.9
[2019-12-04 08:38] VITALS: BP 181/76; PULSE 64; RESP 16; TEMP 36.3; O2SAT 96; BMI 23.9
[2019-12-04] MEDS: 0.9% NaCl Peripheral Flush Adult/Peds IV (09:05)
[2019-12-04] MEDS: Immune Globulin 20 gm Premixed Solution 33 BAG IV (09:10)
[2019-12-04 09:18] LABS: Anion Gap 4 (5-15); BUN 16 mg/dL (7-18); Calcium,Total 8.1 mg/dL (8.5-10.1); Chloride 108 mmol/L (98-107); Creatinine, Serum 1.23 mg/dL (0.70-1.30); EST Glomerular Filtration Rate 60 mL/min (>60); Est Glom Filt Rate - Afr Amer 72 mL/min (>60); Glucose 126 mg/dL (74-106); Potassium 4.3 mmol/L (3.5-5.1); Sodium Level 140 mmol/L (136-145)
[2019-12-04] MEDS: Immune Globulin 20 gm Premixed Solution 132 BAG IV (11:31)
[2019-12-04] MEDS: Immune Globulin 10 gm Premixed Solution 132 BAG IV (13:13)
== END ==
PROVIDERS: PCP Family Medicine Geriatric Medicine; Referring Provider Psychiatry & Neurology Neurology; Visit Provider Psychiatry & Neurology Neurology
DX: G61.81 Chronic inflammatory demyelinating polyneuritis (principal)
CPT/HCPCS: 96365; 96366 ×3; 80048; A4216; J1568

== ENCOUNTER → 2020-01-15 | Outpatient (CLI) | payer MEDICARE, BC, SELFPAY ==
[2019-10-22 09:53] VITALS: BMI 23.9
[2019-12-04 08:38] VITALS: BMI 23.9
[2020-01-15] MEDS: Immune Globulin 20 gm Premixed Solution 33 BAG IV (08:56)
[2020-01-15 09:03] VITALS: BP 158/90; PULSE 63; RESP 16; TEMP 36.4; O2SAT 98; BMI 26.3
[2020-01-15] MEDS: 0.9% NaCl Peripheral Flush Adult/Peds IV (09:06)
[2020-01-15 09:23] LABS: Anion Gap 5 (5-15); BUN 12 mg/dL (7-18); BUN/Creat Ratio 11.1 RATIO (10-20); Calcium,Total 8.6 mg/dL (8.5-10.1); Chloride 109 mmol/L (98-107); Creatinine, Serum 1.08 mg/dL (0.70-1.30); EST Glomerular Filtration Rate 70 mL/min (>60); Est Glom Filt Rate - Afr Amer 84 mL/min (>60); Glucose 105 mg/dL (74-106); Potassium 3.9 mmol/L (3.5-5.1); Sodium Level 140 mmol/L (136-145)
[2020-01-15] MEDS: Immune Globulin 20 gm Premixed Solution 132 BAG IV (11:21)
[2020-01-15] MEDS: Immune Globulin 10 gm Premixed Solution 1.5 BAG IV (13:10)
[2020-01-15 16:58] LABS: Xtra Tube EP Lab EXTRA TUBE
== END | disposition home or self-care (01) ==
LOC: MEDOUTP 08:11
PROVIDERS: PCP Family Medicine Geriatric Medicine; Referring Provider Psychiatry & Neurology Neurology; Visit Provider Psychiatry & Neurology Neurology
DX: G61.81 Chronic inflammatory demyelinating polyneuritis (principal)
CPT/HCPCS: 96365; 96366; 80048; A4216; J1568

== ENCOUNTER → 2020-02-26 | Outpatient (CLI) | payer MEDICARE, BC, SELFPAY ==
[2019-12-04 08:38] VITALS: BMI 23.9
[2020-01-15 09:03] VITALS: BMI 26.3
[2020-02-26] MEDS: 0.9% NaCl Peripheral Flush Adult/Peds IV (08:59)
[2020-02-26] MEDS: Immune Globulin 20 gm Premixed Solution 33 BAG IV (09:02)
[2020-02-26 09:03] VITALS: BP 147/74; PULSE 67; RESP 16; TEMP 36.5; O2SAT 97; BMI 25.5
[2020-02-26 09:34] LABS: Anion Gap 5 (5-15); BUN 16 mg/dL (7-18); BUN/Creat Ratio 12.2 RATIO (10-20); Calcium,Total 8.9 mg/dL (8.5-10.1); Chloride 109 mmol/L (98-107); Creatinine, Serum 1.31 mg/dL (0.70-1.30); EST Glomerular Filtration Rate 56 mL/min (>60); Est Glom Filt Rate - Afr Amer 67 mL/min (>60); Estimated Creatinine Clearance 40.65 ml/min; Glucose 113 mg/dL (74-106); Potassium 3.9 mmol/L (3.5-5.1); Sodium Level 140 mmol/L (136-145)
[2020-02-26] MEDS: Immune Globulin 20 gm Premixed Solution 132 BAG IV (11:25)
[2020-02-26] MEDS: Immune Globulin 10 gm Premixed Solution 132 BAG IV (13:02)
== END | disposition home or self-care (01) ==
LOC: MEDOUTP 08:18
PROVIDERS: PCP Family Medicine Geriatric Medicine; Referring Provider Psychiatry & Neurology Neurology; Visit Provider Psychiatry & Neurology Neurology
DX: G61.81 Chronic inflammatory demyelinating polyneuritis (principal)
CPT/HCPCS: 96365; 96366; 80048; A4216; J1568

== ENCOUNTER → 2020-04-08 08:35 | Outpatient (CLI) | payer MEDICARE, BC, SELFPAY ==
[2020-01-15 09:03] VITALS: BMI 26.3
[2020-02-26 09:03] VITALS: BMI 25.5
[2020-04-08 09:00] VITALS: BP 146/82; PULSE 75; RESP 14; TEMP 35.8; O2SAT 97; BMI 22.8
[2020-04-08] MEDS: 0.9% NaCl Peripheral Flush Adult/Peds IV (09:04)
[2020-04-08] MEDS: Immune Globulin 20 gm Premixed Solution 33 BAG IV (09:19)
[2020-04-08 09:29] LABS: Anion Gap 6 (5-15); BUN 17 mg/dL (7-18); BUN/Creat Ratio 14.4 RATIO (10-20); Chloride 104 mmol/L (98-107); Creatinine, Serum 1.18 mg/dL (0.70-1.30); EST Glomerular Filtration Rate 63 mL/min (>60); Est Glom Filt Rate - Afr Amer 76 mL/min (>60); Glucose 112 mg/dL (74-106); Potassium 3.7 mmol/L (3.5-5.1); Sodium Level 137 mmol/L (136-145)
[2020-04-08] MEDS: Immune Globulin 20 gm Premixed Solution 132 BAG IV (11:49)
[2020-04-08] MEDS: Immune Globulin 10 gm Premixed Solution 132 BAG IV (13:33)
== END ==
PROVIDERS: PCP Family Medicine Geriatric Medicine; Referring Provider Psychiatry & Neurology Neurology; Visit Provider Psychiatry & Neurology Neurology
DX: G61.81 Chronic inflammatory demyelinating polyneuritis (principal)
CPT/HCPCS: 96365; 96366; 80048; A4216; J1568

== ENCOUNTER → 2020-05-13 13:46 | Outpatient (CLI) | payer MEDICARE, BC, SELFPAY ==
[2020-04-08 09:00] VITALS: BMI 22.8
[2020-05-13 16:37] LABS: Absolute Lymphocyte Count 3.71 X10^3/uL (0.83-4.51); Absolute Neutrophil Count 5.1 X10^3/uL (2.0-7.7); Basophil# 0.04 X10^3/uL; Basophil% 0.4 % (0-1); Eosinophil# 0.21 X10^3/uL; Eosinophils% 2.1 % (0-5); Hematocrit 41.6 % (40-54); Hemoglobin 13.6 g/dL (13.0-16.5); Lymphocyte # 3.71 X10^3/ul (4.0); Mean Corp Hgb Conc 32.7 g/dL (32-36); Mean Corpuscular Hgb 30.6 pg (27.0-32.0); Mean Corpuscular Volume 93.7 fL (80-94); Mean Platelet Vol. 10.4 fl (6.2-12.0); Monocyte# 0.91 X10^3/uL; Monocyte% 9.1 % (0-10); NRBC Flagged by Analyzer 0 % (0-5); Neutrophil # 5.13 X10^3/uL (2.7-7.7); Neutrophil % 51.1 % (47-70); Platelet Count 251 K/mm3 (150-450); RBC Distribution Width CV 14.3 % (11.6-14.6); RBC Distribution Width SD 49.5 fl (35.1-43.9); Red Blood Count 4.44 M/mm3 (4.6-6.2)
[2020-05-13 16:58] LABS: ALB/GLOB Ratio 0.9 RATIO (0.9-2.4); AST(SGOT) 22 U/L (15-37); Alanine Aminotransfer ALT/SGPT 26 U/L (16-61); Albumin, Serum 3.8 g/dL (3.2-5.0); Alkaline Phosphatase 73 U/L (45-117); Anion Gap 4 (5-15); BUN 17 mg/dL (7-18); BUN/Creat Ratio 13.9 RATIO (10-20); Calcium,Total 8.6 mg/dL (8.5-10.1); Chloride 108 mmol/L (98-107); Creatinine, Serum 1.22 mg/dL (0.70-1.30); EST Glomerular Filtration Rate 60 mL/min (>60); Est Glom Filt Rate - Afr Amer 73 mL/min (>60); Globulin 4.2 g/dL (2.2-4.2); Glucose 104 mg/dL (74-106); Potassium 4.1 mmol/L (3.5-5.1); Sodium Level 140 mmol/L (136-145); Thyroid Stim Hormone (TSH) 2.81 uIU/mL (0.358-3.74); Uric Acid 6.2 mg/dL (3.5-7.2)
== END ==
PROVIDERS: PCP Family Medicine Geriatric Medicine; Visit Provider Family Medicine Geriatric Medicine
DX: E55.9 Vitamin D deficiency, unspecified (principal); I10 Essential (primary) hypertension; M10.9 Gout, unspecified
CPT/HCPCS: 36415; 80053; 82306; 84443; 84550; 85025

== ENCOUNTER → 2020-05-20 08:18 | Outpatient (CLI) | payer MEDICARE, BC, SELFPAY ==
[2020-02-26 09:03] VITALS: BMI 25.5
[2020-04-08 09:00] VITALS: BMI 22.8
[2020-05-20] MEDS: 0.9% NaCl Peripheral Flush Adult/Peds IV (08:37)
[2020-05-20 08:38] VITALS: BP 172/76; PULSE 57; RESP 16; TEMP 36.4; O2SAT 100; BMI 23.6
[2020-05-20] MEDS: Immune Globulin 20 gm Premixed Solution 33 BAG IV (08:52)
[2020-05-20 09:10] LABS: Anion Gap 4 (5-15); BUN 13 mg/dL (7-18); BUN/Creat Ratio 11.9 RATIO (10-20); Calcium,Total 8.6 mg/dL (8.5-10.1); Chloride 109 mmol/L (98-107); Creatinine, Serum 1.09 mg/dL (0.70-1.30); EST Glomerular Filtration Rate 69 mL/min (>60); Est Glom Filt Rate - Afr Amer 83 mL/min (>60); Estimated Creatinine Clearance 50.55 ml/min; Glucose 102 mg/dL (74-106); Potassium 4.2 mmol/L (3.5-5.1); Sodium Level 141 mmol/L (136-145)
[2020-05-20] MEDS: Immune Globulin 20 gm Premixed Solution 132 BAG IV (11:14)
[2020-05-20] MEDS: Immune Globulin 10 gm Premixed Solution 132 BAG IV (13:05)
== END ==
PROVIDERS: PCP Family Medicine Geriatric Medicine; Referring Provider Psychiatry & Neurology Neurology; Visit Provider Psychiatry & Neurology Neurology
DX: G61.81 Chronic inflammatory demyelinating polyneuritis (principal)
CPT/HCPCS: 96365; 96366; 80048; A4216; J1568

== ENCOUNTER → 2020-07-01 08:15 | Outpatient (CLI) | payer MEDICARE, BC, SELFPAY ==
[2020-04-08 09:00] VITALS: BMI 22.8
[2020-05-20 08:38] VITALS: BMI 23.6
[2020-07-01 08:25] VITALS: BP 184/82; PULSE 67; RESP 16; TEMP 36.1; O2SAT 99; BMI 24.3
[2020-07-01] MEDS: 0.9% NaCl Peripheral Flush Adult/Peds IV (08:30)
[2020-07-01] MEDS: Immune Globulin 20 gm Premixed Solution 33 BAG IV (08:50)
[2020-07-01 09:25] LABS: Anion Gap 6 (5-15); BUN 15 mg/dL (7-18); BUN/Creat Ratio 13.8 RATIO (10-20); Calcium,Total 8.6 mg/dL (8.5-10.1); Chloride 105 mmol/L (98-107); Creatinine, Serum 1.09 mg/dL (0.70-1.30); EST Glomerular Filtration Rate 69 mL/min (>60); Est Glom Filt Rate - Afr Amer 83 mL/min (>60); Estimated Creatinine Clearance 50.55 ml/min; Glucose 114 mg/dL (74-106); Potassium 3.9 mmol/L (3.5-5.1); Sodium Level 139 mmol/L (136-145)
[2020-07-01] MEDS: Immune Globulin 20 gm Premixed Solution 165 BAG IV (11:09)
[2020-07-01] MEDS: Immune Globulin 10 gm Premixed Solution 198 BAG IV (12:23)
== END ==
PROVIDERS: PCP Family Medicine Geriatric Medicine; Referring Provider Psychiatry & Neurology Neurology; Visit Provider Psychiatry & Neurology Neurology
DX: G61.81 Chronic inflammatory demyelinating polyneuritis (principal)
CPT/HCPCS: 96365; 96366; 80048; A4216; J1568

== ENCOUNTER 2020-08-12 08:18 | Outpatient (CLI) | payer MEDICARE, BC, SELFPAY ==
[2020-05-20 08:38] VITALS: BMI 23.6
[2020-07-01 08:25] VITALS: BMI 24.3
[2020-08-12] MEDS: 0.9% NaCl Peripheral Flush Adult/Peds IV (08:30)
[2020-08-12] MEDS: Immune Globulin 20 gm Premixed Solution 33 BAG IV (08:47)
[2020-08-12 08:49] VITALS: BMI 22.9
[2020-08-12 08:58] LABS: Anion Gap 3 (5-15); BUN 12 mg/dL (7-18); BUN/Creat Ratio 11.4 RATIO (10-20); Calcium,Total 8.6 mg/dL (8.5-10.1); Chloride 106 mmol/L (98-107); Creatinine, Serum 1.05 mg/dL (0.70-1.30); EST Glomerular Filtration Rate 72 mL/min (>60); Est Glom Filt Rate - Afr Amer 87 mL/min (>60); Estimated Creatinine Clearance 52.48 ml/min; Glucose 116 mg/dL (74-106); Potassium 3.7 mmol/L (3.5-5.1); Sodium Level 138 mmol/L (136-145)
[2020-08-12] MEDS: Immune Globulin 20 gm Premixed Solution 165 BAG IV (11:15)
[2020-08-12] MEDS: Immune Globulin 10 gm Premixed Solution 132 BAG IV (13:07)
[2020-08-12 14:18] VITALS: BP 183/93; PULSE 87
[2020-08-12 16:42] LABS: Xtra Tube EP Lab EXTRA TUBE
== END 2020-08-12 16:20 | disposition home or self-care (01) ==
LOC: MEDOUTP 08:18
PROVIDERS: PCP Family Medicine Geriatric Medicine; Visit Provider Psychiatry & Neurology Neurology
DX: G61.81 Chronic inflammatory demyelinating polyneuritis (principal)
CPT/HCPCS: 96365; 96366; 80048; A4216; J1568

== ENCOUNTER → 2020-09-23 08:27 | Outpatient (CLI) | payer MEDICARE, BC, SELFPAY ==
[2020-07-01 08:25] VITALS: BMI 24.3
[2020-09-23 08:58] VITALS: BP 190/83; PULSE 66; RESP 16; TEMP 35.8; O2SAT 99; BMI 23.6
[2020-09-23] MEDS: 0.9% NaCl Peripheral Flush Adult/Peds IV (09:01)
[2020-09-23] MEDS: Immune Globulin 20 gm Premixed Solution 33 BAG IV (09:25)
[2020-09-23 10:35] LABS: Anion Gap 4 (5-15); BUN 12 mg/dL (7-18); BUN/Creat Ratio 11.2 RATIO (10-20); Calcium,Total 8.5 mg/dL (8.5-10.1); Chloride 107 mmol/L (98-107); Creatinine, Serum 1.07 mg/dL (0.70-1.30); EST Glomerular Filtration Rate 70 mL/min (>60); Est Glom Filt Rate - Afr Amer 85 mL/min (>60); Estimated Creatinine Clearance 50.61 ml/min; Glucose 122 mg/dL (74-106); Potassium 3.7 mmol/L (3.5-5.1); Sodium Level 138 mmol/L (136-145)
[2020-09-23] MEDS: Immune Globulin 20 gm Premixed Solution 132 BAG IV (11:56)
[2020-09-23] MEDS: Immune Globulin 10 gm Premixed Solution 132 BAG IV (13:37)
[2020-09-23 18:20] LABS: Xtra Tube EP Lab EXTRA TUBE
== END ==
PROVIDERS: PCP Family Medicine Geriatric Medicine; Referring Provider Psychiatry & Neurology Neurology; Visit Provider Psychiatry & Neurology Neurology
DX: G61.81 Chronic inflammatory demyelinating polyneuritis (principal)
CPT/HCPCS: 96365; 96366; 36415; 80048; A4216; J1568

== ENCOUNTER 2020-11-01 20:19 | Emergency (ER) | payer MEDICARE, BC, SELFPAY ==
[2020-09-23 08:58] VITALS: BMI 23.6
[2020-11-01 20:20] VITALS: BP 192/96; PULSE 90; RESP 18; TEMP 36.6; O2SAT 98; BMI 23.7
[2020-11-01 20:53] LABS: Bacteria 0 SEEN /hpf (None Seen); Mucous, Urine 0 SEEN /hpf (<or=2+); Red Blood Cells-Urine 0 SEEN /hpf (0-5)
[2020-11-01 20:56] LABS: Color, Urine Yellow (Yellow); Glucose, Dipstick Normal (Normal); Ketone-Dipstick Negative (Negative); Leukocyte Esterase-Dipstick Negative /ul (Negative); Nitrite-Dipstick Negative (Negative); Occult Blood-Urine 10 /ul (Negative); Protein-Dipstick Negative (Negative); Urine Bilirubin Dipstick Negative (Negative); Urine Clarity Sl. Cloudy (Clear); Urine Urobilinogen Normal (Normal)
[2020-11-01 21:03] LABS: Absolute Lymphocyte Count 3.38 X10^3/uL (0.83-4.51); Basophil# 0.03 X10^3/uL; Basophil% 0.3 % (0-1); Eosinophil# 0.13 X10^3/uL; Eosinophils% 1.1 % (0-5); Hematocrit 41.2 % (40-54); Hemoglobin 13.8 g/dL (13.0-16.5); Lymphocyte # 3.38 X10^3/ul (0.83-4.51); Lymphocyte % 29.2 % (19-41); Mean Corp Hgb Conc 33.5 g/dL (32-36); Mean Corpuscular Hgb 30.5 pg (27.0-32.0); Mean Corpuscular Volume 91.2 fL (80-94); Mean Platelet Vol. 10.2 fl (6.2-12.0); Monocyte# 1.02 X10^3/uL; Monocyte% 8.8 % (0-10); NRBC Flagged by Analyzer 0 % (0-5); Neutrophil # 6.97 X10^3/uL (2.7-7.7); Neutrophil % 60.3 % (47-70); Platelet Count 269 K/mm3 (150-450); RBC Distribution Width CV 13.7 % (11.6-14.6); RBC Distribution Width SD 46.3 fl (35.1-43.9); Red Blood Count 4.52 M/mm3 (4.6-6.2); White Blood Count 11.6 K/mm3 (4.4-11.0)
[2020-11-01 21:08] LABS: Squamous Epithelial Cells - UA 0-5 SEEN /hpf (0-5); White Blood Cells 0-5 SEEN /hpf (0-5)
[2020-11-01 21:15] LABS: Anion Gap 10 (5-15); BUN 12 mg/dL (7-18); BUN/Creat Ratio 10.7 RATIO (10-20); Calcium,Total 8.4 mg/dL (8.5-10.1); Chloride 105 mmol/L (98-107); Creatinine, Serum 1.12 mg/dL (0.70-1.30); EST Glomerular Filtration Rate 67 mL/min (>60); Est Glom Filt Rate - Afr Amer 81 mL/min (>60); Estimated Creatinine Clearance 48.35 ml/min; Glucose 97 mg/dL (74-106); Sodium Level 137 mmol/L (136-145)
--- NOTE | 2020-11-01 22:32 | CT_ITS ---
INDICATION: abd pain EXAMINATION: CT Abdomen And Pelvis W/ Contrast Injection TECHNIQUE: Helically acquired images were obtained of the abdomen and pelvis after IV contrast. A radiation dose optimization technique was used for this scan. IV Contrast dosage and agent: IV 100mL Isovue-300 Oral contrast: None. COMPARISON: None. FINDINGS: Visualized lung bases: Unremarkable Liver: Unremarkable Gallbladder: Unremarkable Spleen: Unremarkable Pancreas: Unremarkable Adrenal Glands: Unremarkable Kidneys: Scattered too small to characterize subcentimeter hypodensities bilaterally. Vasculature: Moderate aortoiliac atherosclerotic disease. GI Tract: Multiple loops of small bowel demonstrate increased wall thickening and enhancement. Scattered diverticula throughout the colon without evidence of inflammation. Lymphadenopathy: None Peritoneum: No ascites. Bladder: Unremarkable Reproductive organs: The prostate is mildly enlarged. Bones/Soft tissues: There are diffuse degenerative changes of the spine. Small bilateral fat-containing inguinal hernias. Posterior fusion hardware at L4-L5. CT/Abdomen/Pelvis W IV Cont ONLY IMPRESSION: Findings suspicious for enteritis. Diverticulosis. Mild prostatomegaly. Correlate with PSA levels. Electronically Signed: Sunil Andrade MD at 23:29 EDT Tel , Service support ,
--- NOTE | 2020-11-01 22:34 | ED.VIS.GI ---
HPI HPI - GI History of Present Illness Chief Complaint: Abd Pain Informant: patient and family Abdominal Pain/Flank Pain Onset: Weeks Context: Gradual Onset Timing: Continuous Quality: Aching and Cramping Location: Diffuse Current Severity: Mild Maximum Severity: Mild Nausea/Vomiting/Emesis GI Symptom: Positive for Nausea and Vomiting Onset: Days Quality: Positive for Nonbilious; Negative for Blood streaks, Coffee ground and Hematemesis Severity: Mild Diarrhea/Melena/Hematochezia GI Symptom: Negative for Diarrhea, Melena and Hematochezia Associated Symptoms Associated Symptoms: Negative for Dysuria, Frequency, Hematuria and Urgency Narrative Narrative: 85-year-old male history of hypertension and neurological condition. No prior abdominal surgeries. States since Monday he has had abdominal cramping and bloating with nausea and vomiting. Said he got better on Monday and and then worse again Monday through Monday. He denies any fever or chills. He denies any dysuria. He denies any back pain. Prior similar symptoms: No Recent Illness/Hospitalization: No PFSH PFSH Home Medications acetaminophen [Tylenol] 2 tab PO Q4H PRN 09/10/15 [History Last Taken Unknown] aspirin 81 mg PO MOTH 09/10/15 [History Last Taken Unknown] levothyroxine 50 mcg PO DAILY 09/10/15 [History Last Taken Unknown] simvastatin 80 mg PO QHS 09/10/15 [History Last Taken Unknown] atenolol 25 mg PO DAILY #30 tablet 09/29/15 [Rx Last Taken Unknown] gabapentin 300 mg PO QHS 12/17/15 [History Last Taken Unknown] polyethylene glycol 3350 17 g PO DAILY PRN 12/17/15 [History Last Taken Unknown] gabapentin [Neurontin] 300 mg PO DAILY PRN 07/24/17 [History Last Taken Unknown] famotidine 40 mg PO BID 05/20/20 [History Last Taken Unknown] ondansetron 4 mg PO Q6H PRN #7 tab 11/02/20 [Rx Last Taken Unknown] Allergy/AdvReac Type Severity Reaction Status Date / Time codeine AdvReac Rash Verified 11/01/20 20:22 diphenhydramine AdvReac Other Verified 11/01/20 20:22 [From Benadryl] indigo AdvReac Angioedema Verified 11/01/20 20:22 Social History Smoking Status: Never smoker ROS ROS ED ROS Narrative Abdominal pain with nausea and vomiting. Review of Systems ROS Unobtainable: Denies due to encephalopathy Constitutional Constitutional ED: Denies chills or fever(s) ENT ENT ED: Denies ear pain or sore throat Cardiovascular Cardiovascular: Denies chest pain Respiratory/Chest Respiratory/Chest: Denies cough or dyspnea Gastrointestinal Gastrointestinal: Reports abdominal pain, nausea and vomiting; Denies constipation, diarrhea or melena Genitourinary Genitourinary ED: Denies dysuria or hematuria Musculoskeletal Musculoskeletal: Denies myalgias Integumentary Denies rash Neurologic Neurologic: Denies headache(s) Psychiatric Psychiatric: Denies depression Endocrine Endocrinology: Denies polyuria Hematologic/Lymphatic Hematologic/Lymphatic: Denies easy bruising Allergic/Immunologic Allergic/Immunologic ED: Denies urticaria EXAM Physical Exam Narrative Exam Narrative: Older male no acute distress vital signs stable afebrile. HEENT exam unremarkable. Moist remembers. Lungs are clear. Heart regular rhythm. Abdomen soft. Diffusely tender. Distended. Decreased bowel sounds. No peritoneal signs. Right upper and right lower quadrant unremarkable. No hernia or mass. No pulsatile mass. Moving all 4 extremities. No edema. Neurovascular intact. Neurologically is awake and alert with no focal motor deficits. Const Vital Signs: 11/01/20 20:20 11/01/20 22:37 11/01/20 22:41 Temperature 97.9 F Temperature Source Temporal Pulse Rate 90 64 Respiratory Rate 18 18 Blood Pressure 192/96 H 193/101 H Blood Pressure Mean 128 131 Pulse Ox 98 96 Oxygen Delivery Method Room Air Room Air 11/01/20 23:43 Temperature Temperature Source Pulse Rate Respiratory Rate Blood Pressure 172/80 H Blood Pressure Mean 110 Pulse Ox Oxygen Delivery Method HEENT Reports moist mucous membranes normocephalic and atraumatic; Negative for trauma or tenderness Eyes PERRL and EOMs intact bilaterally Neck no lymphadenopathy, supple and no JVD General: Negative for tenderness Resp normal respiratory effort and clear to auscultation bilaterally Cardio regular rate, regular rhythm, S1 normal heart sound, S2 normal heart sound and no murmurs GI no masses; Negative for non-tender or non-distended Inspection: abdominal distention Auscultation: hypoactive bowel sounds; Negative for normoactive bowel sounds Palpation: soft and tender; Negative for guarding, rigid or rebound tenderness present Back/Spine no CVA tenderness Extremity full ROM General Extremety ED: Negative for edema or tenderness General Extremity: Negative for edema Neuro Sensorium / Orientation: alert, oriented to person, oriented to place and oriented to time Psych mental status grossly normal Skin Lesions: no lesions Rashes: no rashes MDM MDM MDM Narrative Medical decision making narrative: Older male with abdominal distention and pain with nausea vomiting. Consider bowel obstruction versus multiple other etiologies. CAT scan labs are being obtained. He was treated with IV Zofran he did not want anything for pain at this time. Repeat exam patient doing well at 12:50 AM. Repeat abdominal exam benign. I went over all test results and CAT scan results with both he and his family member. They are comfortable with him being discharged to home outpatient follow-up as needed. Return if worse. Zofran for nausea. Impression: Acute abdominal pain with nausea, vomiting diarrhea secondary to viral syndrome Enteritis Lab Data Attestation: I reviewed the patient's lab results. Lab results narrative: White count elevated 11.6. Hemoglobin 13. Electrolytes unremarkable gap 10 creatinine 1.1 normal BUN. UA normal. Liver enzymes normal. Lipase is normal. Labs: Laboratory Results - last 24 hr 11/01/20 11/01/20 11/01/20 20:35 20:42 20:42 WBC 11.6 H RBC 4.52 L Hgb 13.8 Hct 41.2 MCV 91.2 MCH 30.5 MCHC 33.5 RDW Std Deviation 46.3 H RDW Coeff of Desiree 13.7 Plt Count 269 MPV 10.2 Immature Gran % (Auto) 0.300 Neut % (Auto) 60.3 Lymph % (Auto) 29.2 Hudspeth % (Auto) 8.8 Eos % (Auto) 1.1 Baso % (Auto) 0.3 Absolute Neuts (auto) 7.0 Absolute Lymphs (auto) 3.38 Nucleated RBC % 0 Sodium 137 Potassium 4.0 Chloride 105 Carbon Dioxide 22.0 Anion Gap 10 BUN 12 Creatinine 1.12 Estim Creat Clear Calc 48.35 Est GFR (MDRD) Af Amer 81 Est GFR (MDRD) Non-Af 67 BUN/Creatinine Ratio 10.7 Glucose 97 Calcium 8.4 L Total Bilirubin Direct Bilirubin AST ALT Alkaline Phosphatase Total Protein Albumin Globulin Lipase Urine Color Yellow Urine Clarity Sl. Cloudy Urine pH 5.0 Ur Specific Agency 1.020 Urine Protein Negative Urine Glucose (UA) Normal Urine Ketones Negative Urine Occult Blood 10 H Urine Nitrite Negative Urine Bilirubin Negative Urine Urobilinogen Normal Ur Leukocyte Esterase Negative Urine RBC 0 SEEN Urine WBC 0-5 SEEN Ur Squamous Epith Cells 0-5 SEEN Urine Bacteria 0 SEEN Urine Mucus 0 SEEN 11/01/20 20:42 WBC RBC Hgb Hct MCV MCH MCHC RDW Std Deviation RDW Coeff of Desiree Plt Count MPV Immature Gran % (Auto) Neut % (Auto) Lymph % (Auto) Hudspeth % (Auto) Eos % (Auto) Baso % (Auto) Absolute Neuts (auto) Absolute Lymphs (auto) Nucleated RBC % Sodium Potassium Chloride Carbon Dioxide Anion Gap BUN Creatinine Estim Creat Clear Calc Est GFR (MDRD) Af Amer Est GFR (MDRD) Non-Af BUN/Creatinine Ratio Glucose Calcium Total Bilirubin 0.70 Direct Bilirubin 0.15 AST 22 ALT 16 Alkaline Phosphatase 73 Total Protein 8.0 Albumin 3.8 Globulin 4.2 Lipase 181 Urine Color Urine Clarity Urine pH Ur Specific Agency Urine Protein Urine Glucose (UA) Urine Ketones Urine Occult Blood Urine Nitrite Urine Bilirubin Urine Urobilinogen Ur Leukocyte Esterase Urine RBC Urine WBC Ur Squamous Epith Cells Urine Bacteria Urine Mucus Discharge Plan Triage Chief Complaint: Abd Pain ED Provider: Salo Cohen Dx/Rx/DC Orders Instructions: ED Gastroenteritis, Viral (Adult) Prescriptions: New ondansetron 4 mg tablet,disintegrating 4 mg PO Q6H PRN (Reason: nausea and vomiting) Qty: 7 RF: 0 No Action acetaminophen [Tylenol] 325 MG tablet 2 tab PO Q4H PRN (Reason: HEADACHE/MILD PAIN) RF: 0 simvastatin 80 MG tablet 80 mg PO QHS RF: 0 levothyroxine 50 MCG tablet 50 mcg PO DAILY RF: 0 aspirin 81 MG tablet,chewable 81 mg PO MOTH RF: 0 atenolol 25 MG tablet 25 mg PO DAILY Qty: 30 RF: 0 polyethylene glycol 3350 17 GM powder in packet 17 g PO DAILY PRN (Reason: Constipation) RF: 0 gabapentin 600 MG tablet 300 mg PO QHS RF: 0 gabapentin [Neurontin] 300 MG capsule 300 mg PO DAILY PRN (Reason: NERVE PAIN) RF: 0 famotidine 40 MG tablet 40 mg PO BID RF: 0 Primary Care Provider: Tay Khoury Chi Referrals: Tay Khoury Chi, MD [Primary Care Provider] - 3-5 Days if not improving Activity Restrictions/Additional Instructions: This seems all be caused by a viral illness. Typically called viral gastroenteritis. Plenty of fluids and rest. This should progressively improve over the next several days. If not follow-up with your doctor. Zofran as needed for nausea which you may swallow or let it dissolve under your tongue. Return the emergency department if feeling a lot worse. Disposition Disposition: Home, Self Care
[2020-11-01] MEDS: Ondansetron 4 MG/2 ML Vial IV (22:36)
[2020-11-01] MEDS: 0.9% Normal Saline 1,000 ML 1000 ML IV (22:36)
[2020-11-01 22:37] VITALS: PULSE 64; RESP 18; O2SAT 96
[2020-11-01 22:41] VITALS: BP 193/101
[2020-11-01 23:04] LABS: AST(SGOT) 22 U/L (15-37); Alanine Aminotransfer ALT/SGPT 16 U/L (16-61); Albumin, Serum 3.8 g/dL (3.2-5.0); Alkaline Phosphatase 73 U/L (45-117); Bilirubin, Direct 0.15 mg/dL (0.00-0.30); Globulin 4.2 g/dL (2.2-4.2); Lipase 181 U/L (73-393)
[2020-11-01 23:43] VITALS: BP 172/80
[2020-11-02] MEDS: Ondansetron ODT 4 MG Tablet PO (01:19)
== END 2020-11-02 01:20 | disposition home or self-care (01) ==
PROVIDERS: Emergency Provider Emergency Medicine; PCP Family Medicine Geriatric Medicine
DX: A08.4 Viral intestinal infection, unspecified (principal); I10 Essential (primary) hypertension; Z79.899 Other long term (current) drug therapy
CPT/HCPCS: 74177; 80048; 80076; 81001; 83690; 85025; 96361; 96374; 99285; A4216

== ENCOUNTER → 2020-11-04 08:31 | Outpatient (CLI) | payer MEDICARE, BC, SELFPAY ==
[2020-11-01 20:20] VITALS: BMI 23.7
[2020-11-04 08:36] VITALS: BP 173/62; PULSE 64; RESP 16; TEMP 36.5; O2SAT 100; BMI 23.7
[2020-11-04] MEDS: 0.9% NaCl Peripheral Flush Adult/Peds IV (08:44)
[2020-11-04] MEDS: Immune Globulin 20 gm Premixed Solution 33 BAG IV (08:51)
[2020-11-04 09:11] LABS: Anion Gap 4 (5-15); BUN 11 mg/dL (7-18); BUN/Creat Ratio 9.6 RATIO (10-20); Calcium,Total 8.3 mg/dL (8.5-10.1); Chloride 109 mmol/L (98-107); Creatinine, Serum 1.15 mg/dL (0.70-1.30); EST Glomerular Filtration Rate 65 mL/min (>60); Est Glom Filt Rate - Afr Amer 78 mL/min (>60); Estimated Creatinine Clearance 47.09 ml/min; Glucose 118 mg/dL (74-106); Potassium 3.8 mmol/L (3.5-5.1); Sodium Level 139 mmol/L (136-145)
[2020-11-04] MEDS: Immune Globulin 20 gm Premixed Solution 132 BAG IV (11:11)
[2020-11-04] MEDS: Immune Globulin 10 gm Premixed Solution 132 BAG IV (12:55)
== END ==
PROVIDERS: PCP Family Medicine Geriatric Medicine; Referring Provider Psychiatry & Neurology Neurology; Visit Provider Psychiatry & Neurology Neurology
DX: G61.81 Chronic inflammatory demyelinating polyneuritis (principal)
CPT/HCPCS: 96365; 96366; 80048; A4216; J1568

== ENCOUNTER → 2020-11-16 14:49 | Outpatient (CLI) | payer MEDICARE, BC, SELFPAY ==
[2020-11-04 08:36] VITALS: BMI 23.7
[2020-11-16 16:57] LABS: Absolute Lymphocyte Count 3.34 X10^3/uL (0.83-4.51); Absolute Neutrophil Count 5.3 X10^3/uL (2.0-7.7); Basophil# 0.04 X10^3/uL; Basophil% 0.4 % (0-1); Eosinophil# 0.22 X10^3/uL; Eosinophils% 2.2 % (0-5); Hematocrit 39.9 % (40-54); Hemoglobin 12.9 g/dL (13.0-16.5); Lymphocyte # 3.34 X10^3/ul (0.83-4.51); Lymphocyte % 33.3 % (19-41); Mean Corp Hgb Conc 32.3 g/dL (32-36); Mean Corpuscular Hgb 30.2 pg (27.0-32.0); Mean Corpuscular Volume 93.4 fL (80-94); Mean Platelet Vol. 10.8 fl (6.2-12.0); Monocyte# 1.13 X10^3/uL; Monocyte% 11.3 % (0-10); NRBC Flagged by Analyzer 0 % (0-5); Neutrophil # 5.28 X10^3/uL (2.7-7.7); Neutrophil % 52.6 % (47-70); Platelet Count 274 K/mm3 (150-450); RBC Distribution Width SD 48.1 fl (35.1-43.9); Red Blood Count 4.27 M/mm3 (4.6-6.2)
[2020-11-16 17:24] LABS: ALB/GLOB Ratio 0.8 RATIO (0.9-2.4); AST(SGOT) 27 U/L (15-37); Alanine Aminotransfer ALT/SGPT 24 U/L (16-61); Albumin, Serum 3.7 g/dL (3.2-5.0); Alkaline Phosphatase 73 U/L (45-117); Anion Gap 8 (5-15); BUN 29 mg/dL (7-18); Calcium,Total 8.5 mg/dL (8.5-10.1); Chloride 105 mmol/L (98-107); Creatinine, Serum 1.53 mg/dL (0.70-1.30); EST Glomerular Filtration Rate 46 mL/min (>60); Est Glom Filt Rate - Afr Amer 56 mL/min (>60); Globulin 4.5 g/dL (2.2-4.2); Glucose 100 mg/dL (74-106); Potassium 4.7 mmol/L (3.5-5.1); Protein, Total 8.2 g/dL (6.4-8.2); Sodium Level 140 mmol/L (136-145); Thyroid Stim Hormone (TSH) 2.38 uIU/mL (0.358-3.74); Uric Acid 8.4 mg/dL (3.5-7.2)
[2020-11-16 17:25] LABS: Vitamin D,25 Hydroxy 39.2 ng/mL
== END ==
PROVIDERS: PCP Family Medicine Geriatric Medicine; Visit Provider Family Medicine Geriatric Medicine
DX: E55.9 Vitamin D deficiency, unspecified (principal); I10 Essential (primary) hypertension; M10.9 Gout, unspecified
CPT/HCPCS: 36415; 80053; 82306; 84443; 84550; 85025

== ENCOUNTER → 2020-12-16 08:34 | Outpatient (CLI) | payer MEDICARE, BC, SELFPAY ==
[2020-11-04 08:36] VITALS: BMI 23.7
[2020-12-16] MEDS: 0.9% NaCl Peripheral Flush Adult/Peds IV (08:55)
[2020-12-16] MEDS: Immune Globulin 20 gm Premixed Solution 33 BAG IV (09:00)
[2020-12-16 09:01] VITALS: BP 192/74; PULSE 63; RESP 16; TEMP 35.9; O2SAT 98; BMI 23.6
[2020-12-16 09:14] LABS: Anion Gap 5 (5-15); BUN 33 mg/dL (7-18); BUN/Creat Ratio 18.8 RATIO (10-20); Calcium,Total 8.8 mg/dL (8.5-10.1); Chloride 104 mmol/L (98-107); Creatinine, Serum 1.76 mg/dL (0.70-1.30); EST Glomerular Filtration Rate 40 mL/min (>60); Est Glom Filt Rate - Afr Amer 48 mL/min (>60); Estimated Creatinine Clearance 30.77 ml/min; Glucose 109 mg/dL (74-106); Potassium 4.3 mmol/L (3.5-5.1); Sodium Level 141 mmol/L (136-145)
[2020-12-16] MEDS: Immune Globulin 20 gm Premixed Solution 132 BAG IV (11:15)
[2020-12-16] MEDS: Immune Globulin 10 gm Premixed Solution 132 BAG IV (12:52)
== END ==
PROVIDERS: PCP Family Medicine Geriatric Medicine; Referring Provider Psychiatry & Neurology Neurology; Visit Provider Psychiatry & Neurology Neurology
DX: G61.81 Chronic inflammatory demyelinating polyneuritis (principal)
CPT/HCPCS: 96365; 96366 ×4; 80048; A4216; J1568

== ENCOUNTER → 2021-01-27 08:24 | Outpatient (CLI) | payer MEDICARE, BC, SELFPAY ==
[2020-11-04 08:36] VITALS: BMI 23.7
[2021-01-27 08:41] VITALS: BP 148/73; PULSE 68; RESP 16; TEMP 36.6; O2SAT 97; BMI 24.3
[2021-01-27] MEDS: 0.9% NaCl Peripheral Flush Adult/Peds IV (08:50)
[2021-01-27] MEDS: Immune Globulin 20 gm Premixed Solution 33 BAG IV (09:10)
[2021-01-27 09:12] LABS: Anion Gap 10 (5-15); BUN 25 mg/dL (7-18); BUN/Creat Ratio 16.9 RATIO (10-20); Calcium,Total 8.8 mg/dL (8.5-10.1); Chloride 104 mmol/L (98-107); Creatinine, Serum 1.48 mg/dL (0.70-1.30); EST Glomerular Filtration Rate 48 mL/min (>60); Est Glom Filt Rate - Afr Amer 58 mL/min (>60); Estimated Creatinine Clearance 35.36 ml/min; Glucose 142 mg/dL (74-106); Potassium 4.3 mmol/L (3.5-5.1); Sodium Level 139 mmol/L (136-145)
[2021-01-27] MEDS: Immune Globulin 10 gm Premixed Solution 33 BAG IV (11:38)
[2021-01-27] MEDS: Immune Globulin 5 GM Premixed Solution 132 BAG IV (12:36)
[2021-01-27 13:08] VITALS: BP 140/69; PULSE 74; RESP 16; TEMP 36.6; O2SAT 99
== END ==
PROVIDERS: PCP Family Medicine Geriatric Medicine; Referring Provider Psychiatry & Neurology Neurology; Visit Provider Psychiatry & Neurology Neurology
DX: G61.81 Chronic inflammatory demyelinating polyneuritis (principal)
CPT/HCPCS: 96365; 96366 ×2; 80048; A4216; J1568

== ENCOUNTER → 2021-03-10 08:22 | Outpatient (CLI) | payer MEDICARE, BC, SELFPAY ==
[2021-03-10] MEDS: Immune Globulin 20 gm Premixed Solution 35 BAG IV (09:08)
[2021-03-10] MEDS: 0.9% NaCl Peripheral Flush Adult/Peds IV (09:08)
[2021-03-10 09:12] VITALS: BP 141/78; PULSE 66; RESP 16; TEMP 35.8; O2SAT 100; BMI 23.6
[2021-03-10 09:29] LABS: Anion Gap 6 (5-15); BUN 31 mg/dL (7-18); BUN/Creat Ratio 21.1 RATIO (10-20); Calcium,Total 8.8 mg/dL (8.5-10.1); Chloride 107 mmol/L (98-107); Creatinine, Serum 1.47 mg/dL (0.70-1.30); EST Glomerular Filtration Rate 49 mL/min (>60); Est Glom Filt Rate - Afr Amer 59 mL/min (>60); Estimated Creatinine Clearance 36.84 ml/min; Glucose 144 mg/dL (74-106); Potassium 4.9 mmol/L (3.5-5.1); Sodium Level 139 mmol/L (136-145)
[2021-03-10] MEDS: Immune Globulin 10 gm Premixed Solution 132 BAG IV (11:25)
[2021-03-10] MEDS: Immune Globulin 5 GM Premixed Solution 132 BAG IV (12:23)
== END ==
PROVIDERS: PCP Family Medicine Geriatric Medicine; Referring Provider Psychiatry & Neurology Neurology; Visit Provider Psychiatry & Neurology Neurology
DX: G61.81 Chronic inflammatory demyelinating polyneuritis (principal)
CPT/HCPCS: 96365; 96366; 80048; A4216; J1568

== ENCOUNTER → 2021-04-21 08:16 | Outpatient (CLI) | payer MEDICARE, BC, SELFPAY ==
[2021-04-21 08:45] VITALS: BP 139/75; PULSE 71; RESP 16; TEMP 36.3; O2SAT 98; BMI 23.6
[2021-04-21] MEDS: Immune Globulin 20 gm Premixed Solution 33 BAG IV (08:58)
[2021-04-21] MEDS: 0.9% NaCl Peripheral Flush Adult/Peds IV (08:59)
[2021-04-21 09:19] LABS: Anion Gap 9 (5-15); BUN 27 mg/dL (7-18); BUN/Creat Ratio 20.1 RATIO (10-20); Calcium,Total 8.9 mg/dL (8.5-10.1); Chloride 106 mmol/L (98-107); Creatinine, Serum 1.34 mg/dL (0.70-1.30); EST Glomerular Filtration Rate 54 mL/min (>60); Est Glom Filt Rate - Afr Amer 65 mL/min (>60); Estimated Creatinine Clearance 40.41 ml/min; Glucose 122 mg/dL (74-106); Potassium 5.1 mmol/L (3.5-5.1); Sodium Level 140 mmol/L (136-145)
[2021-04-21] MEDS: Immune Globulin 10 gm Premixed Solution 132 BAG IV (11:17)
[2021-04-21] MEDS: Immune Globulin 5 GM Premixed Solution 132 BAG IV (12:15)
== END ==
PROVIDERS: PCP Family Medicine Geriatric Medicine; Referring Provider Psychiatry & Neurology Neurology; Visit Provider Psychiatry & Neurology Neurology
DX: G61.81 Chronic inflammatory demyelinating polyneuritis (principal)
CPT/HCPCS: 96365; 96366; 80048; A4216; J1568

== ENCOUNTER 2021-06-11 08:47 | Outpatient (CLI) | payer MEDICARE, BC, SELFPAY ==
[2021-06-11 09:15] VITALS: BP 161/68; PULSE 69; RESP 16; TEMP 35.7; O2SAT 98; BMI 23.6
[2021-06-11] MEDS: Immune Globulin 20 gm Premixed Solution 33 BAG IV (09:25)
[2021-06-11 09:47] LABS: Anion Gap 7 (5-15); BUN 24 mg/dL (7-18); BUN/Creat Ratio 18.6 RATIO (10-20); Chloride 106 mmol/L (98-107); Creatinine, Serum 1.29 mg/dL (0.70-1.30); EST Glomerular Filtration Rate 56 mL/min (>60); Est Glom Filt Rate - Afr Amer 68 mL/min (>60); Estimated Creatinine Clearance 41.98 ml/min; Glucose 120 mg/dL (74-106); Potassium 4.3 mmol/L (3.5-5.1); Sodium Level 138 mmol/L (136-145)
[2021-06-11] MEDS: Immune Globulin 10 gm Premixed Solution 132 BAG IV (11:52)
[2021-06-11] MEDS: Immune Globulin 5 GM Premixed Solution 132 BAG IV (12:41)
== END 2021-06-11 23:59 | disposition home or self-care (01) ==
LOC: MEDOUTP 08:51
PROVIDERS: PCP Family Medicine Geriatric Medicine; Referring Provider Psychiatry & Neurology Neurology; Visit Provider Psychiatry & Neurology Neurology
DX: G61.81 Chronic inflammatory demyelinating polyneuritis (principal)
CPT/HCPCS: 96365; 96366 ×2; 80048; A4216; J1568

== ENCOUNTER 2021-07-23 08:17 | Outpatient (CLI) | payer MEDICARE, BC, SELFPAY ==
[2021-07-23 08:26] VITALS: BP 160/70; PULSE 64; RESP 16; TEMP 36.1; O2SAT 99
[2021-07-23 09:04] LABS: Anion Gap 5 (5-15); BUN 26 mg/dL (7-18); BUN/Creat Ratio 19.3 RATIO (10-20); Calcium,Total 8.5 mg/dL (8.5-10.1); Chloride 105 mmol/L (98-107); Creatinine, Serum 1.35 mg/dL (0.70-1.30); EST Glomerular Filtration Rate 54 mL/min (>60); Est Glom Filt Rate - Afr Amer 65 mL/min (>60); Glucose 112 mg/dL (74-106); Potassium 4.2 mmol/L (3.5-5.1); Sodium Level 138 mmol/L (136-145)
[2021-07-23] MEDS: Immune Globulin 20 gm Premixed Solution 33 BAG IV (09:08)
[2021-07-23] MEDS: 0.9% NaCl Peripheral Flush Adult/Peds IV (09:10)
[2021-07-23] MEDS: Immune Globulin 10 gm Premixed Solution 132 BAG IV (11:25)
[2021-07-23] MEDS: Immune Globulin 5 GM Premixed Solution 132 BAG IV (12:17)
== END 2021-07-23 23:59 | disposition home or self-care (01) ==
LOC: MEDOUTP 08:18
PROVIDERS: PCP Family Medicine Geriatric Medicine; Referring Provider Psychiatry & Neurology Neurology; Visit Provider Psychiatry & Neurology Neurology
DX: G61.81 Chronic inflammatory demyelinating polyneuritis (principal)
CPT/HCPCS: 96365; 96366 ×3; 80048; A4216; J1568

== ENCOUNTER → 2021-09-03 | Outpatient (CLI) | payer MEDICARE, BC, SELFPAY ==
[2021-09-03 08:27] VITALS: BP 177/66; PULSE 65; RESP 16; TEMP 36.6; O2SAT 100
[2021-09-03] MEDS: 0.9% NaCl Peripheral Flush Adult/Peds IV ×2 (08:31→08:55)
[2021-09-03] MEDS: Immune Globulin 20 gm Premixed Solution 33 BAG IV (08:54)
[2021-09-03 09:06] LABS: Anion Gap 7 (5-15); BUN 22 mg/dL (7-18); BUN/Creat Ratio 18.2 RATIO (10-20); Calcium,Total 8.4 mg/dL (8.5-10.1); Chloride 107 mmol/L (98-107); Creatinine, Serum 1.21 mg/dL (0.70-1.30); EST Glomerular Filtration Rate 61 mL/min (>60); Est Glom Filt Rate - Afr Amer 74 mL/min (>60); Glucose 115 mg/dL (74-106); Sodium Level 140 mmol/L (136-145)
[2021-09-03] MEDS: Immune Globulin 10 gm Premixed Solution 132 BAG IV (11:19)
[2021-09-03] MEDS: Immune Globulin 5 GM Premixed Solution 132 BAG IV (12:06)
== END | disposition home or self-care (01) ==
LOC: MEDOUTP 08:18
PROVIDERS: PCP Family Medicine Geriatric Medicine; Referring Provider Clinical Nurse Specialist Acute Care; Visit Provider Clinical Nurse Specialist Acute Care
DX: G61.81 Chronic inflammatory demyelinating polyneuritis (principal)
CPT/HCPCS: 96365; 96366; 80048; A4216; J1568

== ENCOUNTER 2021-10-15 08:22 | Outpatient (CLI) | payer MEDICARE, BC, SELFPAY ==
[2021-10-15] MEDS: 0.9% NaCl Peripheral Flush Adult/Peds IV (08:54)
[2021-10-15] MEDS: Immune Globulin 20 gm Premixed Solution 33 BAG IV (08:58)
[2021-10-15 09:01] VITALS: BP 160/59; PULSE 71; RESP 16; TEMP 36.2; O2SAT 99
[2021-10-15 09:27] LABS: Anion Gap 7 (5-15); BUN 29 mg/dL (7-18); BUN/Creat Ratio 20.7 RATIO (10-20); Calcium,Total 8.6 mg/dL (8.5-10.1); Chloride 107 mmol/L (98-107); EST Glomerular Filtration Rate 51 mL/min (>60); Est Glom Filt Rate - Afr Amer 62 mL/min (>60); Glucose 163 mg/dL (74-106); Potassium 4.2 mmol/L (3.5-5.1); Sodium Level 138 mmol/L (136-145)
[2021-10-15] MEDS: Immune Globulin 10 gm Premixed Solution 132 BAG IV (11:35)
[2021-10-15] MEDS: Immune Globulin 5 GM Premixed Solution 132 BAG IV (12:49)
== END 2021-10-15 23:59 | disposition home or self-care (01) ==
LOC: MEDOUTP 08:22
PROVIDERS: PCP Family Medicine Geriatric Medicine; Referring Provider Psychiatry & Neurology Neurology; Visit Provider Psychiatry & Neurology Neurology
DX: G61.81 Chronic inflammatory demyelinating polyneuritis (principal)
CPT/HCPCS: 96365; 96366; 80048; A4216; J1568

== ENCOUNTER → 2021-11-26 | Outpatient (CLI) | payer MEDICARE, BC, SELFPAY ==
[2021-11-26 09:17] VITALS: BP 160/78; PULSE 66; RESP 16; TEMP 35.9; O2SAT 99; BMI 24.0
[2021-11-26] MEDS: Immune Globulin 20 gm Premixed Solution 33 BAG IV (09:22)
[2021-11-26 09:59] LABS: Anion Gap 5 (5-15); BUN 23 mg/dL (7-18); BUN/Creat Ratio 17.8 RATIO (10-20); Calcium,Total 8.8 mg/dL (8.5-10.1); Chloride 109 mmol/L (98-107); Creatinine, Serum 1.29 mg/dL (0.70-1.30); EST Glomerular Filtration Rate 56 mL/min (>60); Est Glom Filt Rate - Afr Amer 68 mL/min (>60); Estimated Creatinine Clearance 41.24 ml/min; Glucose 121 mg/dL (74-106); Potassium 3.9 mmol/L (3.5-5.1); Sodium Level 139 mmol/L (136-145)
[2021-11-26] MEDS: Immune Globulin 10 gm Premixed Solution 132 BAG IV (12:04)
[2021-11-26] MEDS: Immune Globulin 5 GM Premixed Solution 132 BAG IV (12:59)
== END | disposition home or self-care (01) ==
LOC: MEDOUTP 08:35
PROVIDERS: PCP Family Medicine Geriatric Medicine; Referring Provider Psychiatry & Neurology Neurology; Visit Provider Psychiatry & Neurology Neurology
DX: G61.81 Chronic inflammatory demyelinating polyneuritis (principal)
CPT/HCPCS: 96365; 96366; 96367; 80048; J1568

== ENCOUNTER → 2022-01-07 | Outpatient (CLI) | payer MEDICARE, BC, SELFPAY ==
[2022-01-07 08:58] VITALS: BP 169/75; PULSE 66; RESP 16; TEMP 36.2; O2SAT 99; BMI 24.3
[2022-01-07] MEDS: Immune Globulin 20 gm Premixed Solution 33 BAG IV (09:05)
[2022-01-07 09:32] LABS: Anion Gap 6 (5-15); BUN 22 mg/dL (7-18); BUN/Creat Ratio 17.2 RATIO (10-20); Calcium,Total 8.7 mg/dL (8.5-10.1); Chloride 106 mmol/L (98-107); Creatinine, Serum 1.28 mg/dL (0.70-1.30); EST Glomerular Filtration Rate 57 mL/min (>60); Est Glom Filt Rate - Afr Amer 69 mL/min (>60); Estimated Creatinine Clearance 41.56 ml/min; Glucose 115 mg/dL (74-106); Potassium 4.1 mmol/L (3.5-5.1); Sodium Level 140 mmol/L (136-145)
[2022-01-07] MEDS: Immune Globulin 10 gm Premixed Solution 132 BAG IV (11:25)
[2022-01-07] MEDS: Immune Globulin 5 GM Premixed Solution 132 BAG IV (12:15)
== END | disposition home or self-care (01) ==
LOC: MEDOUTP 08:18
PROVIDERS: PCP Family Medicine Geriatric Medicine; Referring Provider Psychiatry & Neurology Neurology; Visit Provider Psychiatry & Neurology Neurology
DX: G61.81 Chronic inflammatory demyelinating polyneuritis (principal)
CPT/HCPCS: 96365; 96366 ×4; 80048; A4216; J1568

== ENCOUNTER → 2022-02-18 | Outpatient (CLI) | payer MEDICARE, BC, SELFPAY ==
[2022-02-18 08:46] VITALS: BP 156/63; PULSE 66; RESP 16; O2SAT 99; BMI 24.3
[2022-02-18] MEDS: 0.9% NaCl Peripheral Flush Adult/Peds IV (08:55)
[2022-02-18] MEDS: Immune Globulin 20 gm Premixed Solution 33 BAG IV (08:56)
[2022-02-18 09:18] LABS: Anion Gap 7 (5-15); BUN 27 mg/dL (7-18); BUN/Creat Ratio 21.1 RATIO (10-20); Calcium,Total 8.4 mg/dL (8.5-10.1); Chloride 105 mmol/L (98-107); Creatinine, Serum 1.28 mg/dL (0.70-1.30); EST Glomerular Filtration Rate 57 mL/min (>60); Est Glom Filt Rate - Afr Amer 69 mL/min (>60); Estimated Creatinine Clearance 41.56 ml/min; Glucose 112 mg/dL (74-106); Potassium 3.9 mmol/L (3.5-5.1); Sodium Level 138 mmol/L (136-145)
[2022-02-18] MEDS: Immune Globulin 10 gm Premixed Solution 132 BAG IV (11:24)
[2022-02-18] MEDS: Immune Globulin 5 GM Premixed Solution 132 BAG IV (12:18)
== END | disposition home or self-care (01) ==
LOC: MEDOUTP 08:24
PROVIDERS: PCP Family Medicine Geriatric Medicine; Referring Provider Psychiatry & Neurology Neurology; Visit Provider Psychiatry & Neurology Neurology
DX: G61.81 Chronic inflammatory demyelinating polyneuritis (principal)
CPT/HCPCS: 96366 ×3; 96365; 80048; A4216; J1568

== ENCOUNTER → 2022-04-14 | Outpatient (CLI) | payer MEDICARE, BC, SELFPAY ==
[2022-04-14 08:37] VITALS: BP 130/70; PULSE 73; TEMP 36.5; O2SAT 96
[2022-04-14] MEDS: Immune Globulin 20 gm Premixed Solution 33 BAG IV (08:56)
[2022-04-14] MEDS: 0.9% NaCl Peripheral Flush Adult/Peds IV (08:57)
[2022-04-14 09:14] LABS: Anion Gap 8 (5-15); BUN 27 mg/dL (7-18); BUN/Creat Ratio 22.5 RATIO (10-20); Calcium,Total 8.3 mg/dL (8.5-10.1); Chloride 107 mmol/L (98-107); EST Glomerular Filtration Rate 61 mL/min (>60); Est Glom Filt Rate - Afr Amer 74 mL/min (>60); Glucose 118 mg/dL (74-106); Sodium Level 139 mmol/L (136-145)
[2022-04-14] MEDS: Immune Globulin 10 gm Premixed Solution 132 BAG IV (11:29)
[2022-04-14] MEDS: Immune Globulin 5 GM Premixed Solution 132 BAG IV (12:26)
== END | disposition home or self-care (01) ==
LOC: MEDOUTP 08:16
PROVIDERS: PCP Family Medicine Geriatric Medicine; Referring Provider Psychiatry & Neurology Neurology; Visit Provider Psychiatry & Neurology Neurology
DX: G61.81 Chronic inflammatory demyelinating polyneuritis (principal)
CPT/HCPCS: 96365; 96366 ×5; 80048; A4216; J1568

== ENCOUNTER → 2022-05-27 | Outpatient (CLI) | payer MEDICARE, BC, SELFPAY ==
[2022-05-27 08:26] VITALS: BP 184/74; PULSE 72; RESP 16; TEMP 36.2; BMI 25.0
[2022-05-27] MEDS: Immune Globulin 20 gm Premixed Solution 33 BAG IV (08:39)
[2022-05-27] MEDS: 0.9% NaCl Peripheral Flush Adult/Peds IV (08:40)
[2022-05-27 09:03] LABS: Anion Gap 8 (5-15); BUN 23 mg/dL (7-18); BUN/Creat Ratio 16.9 RATIO (10-20); Calcium,Total 8.8 mg/dL (8.5-10.1); Chloride 106 mmol/L (98-107); Creatinine, Serum 1.36 mg/dL (0.70-1.30); EST Glomerular Filtration Rate 53 mL/min (>60); Est Glom Filt Rate - Afr Amer 64 mL/min (>60); Estimated Creatinine Clearance 39.12 ml/min; Glucose 110 mg/dL (74-106); Potassium 3.9 mmol/L (3.5-5.1); Sodium Level 140 mmol/L (136-145)
[2022-05-27] MEDS: Immune Globulin 10 gm Premixed Solution 132 BAG IV (10:56)
[2022-05-27] MEDS: Immune Globulin 5 GM Premixed Solution 132 BAG IV (11:42)
[2022-05-27 16:48] LABS: Xtra Tube EP Lab EXTRA TUBE
[2022-05-27 16:49] LABS: Xtra Tube EP Lab EXTRA TUBE
== END | disposition home or self-care (01) ==
LOC: MEDOUTP 08:15
PROVIDERS: PCP Family Medicine Geriatric Medicine; Referring Provider Psychiatry & Neurology Neurology; Visit Provider Psychiatry & Neurology Neurology
DX: G61.81 Chronic inflammatory demyelinating polyneuritis (principal)
CPT/HCPCS: 96365; 96366; 80048; A4216; J1568

== ENCOUNTER → 2022-07-08 | Outpatient (CLI) | payer MEDICARE, BC, SELFPAY ==
[2022-07-08 08:23] VITALS: BP 153/69; PULSE 67; RESP 18; TEMP 36.4; O2SAT 97; BMI 25.1
[2022-07-08] MEDS: 0.9% NaCl Peripheral Flush Adult/Peds IV (08:27)
[2022-07-08] MEDS: Immune Globulin 20 gm Premixed Solution 33 BAG IV (08:43)
[2022-07-08 08:56] LABS: Anion Gap 7 (5-15); BUN 26 mg/dL (7-18); BUN/Creat Ratio 20.6 RATIO (10-20); Calcium,Total 8.9 mg/dL (8.5-10.1); Chloride 108 mmol/L (98-107); Creatinine, Serum 1.26 mg/dL (0.70-1.30); EST Glomerular Filtration Rate 58 mL/min (>60); Est Glom Filt Rate - Afr Amer 70 mL/min (>60); Glucose 144 mg/dL (74-106); Potassium 4.1 mmol/L (3.5-5.1); Sodium Level 140 mmol/L (136-145)
[2022-07-08] MEDS: Immune Globulin 10 gm Premixed Solution 132 BAG IV (10:58)
[2022-07-08] MEDS: Immune Globulin 5 GM Premixed Solution 132 BAG IV (11:57)
[2022-07-08 12:22] VITALS: BP 163/69; PULSE 93; RESP 18; TEMP 36.4; O2SAT 100
== END | disposition home or self-care (01) ==
LOC: MEDOUTP 08:07
PROVIDERS: PCP Family Medicine Geriatric Medicine; Referring Provider Psychiatry & Neurology Neurology; Visit Provider Psychiatry & Neurology Neurology
DX: G61.81 Chronic inflammatory demyelinating polyneuritis (principal)
CPT/HCPCS: 96365; 96366; 80048; A4216; J1568

== ENCOUNTER → 2022-08-19 | Outpatient (CLI) | payer MEDICARE, BC, SELFPAY ==
[2022-08-19 09:00] VITALS: BP 155/71; PULSE 60; RESP 16; TEMP 36.4; O2SAT 98; BMI 24.3
[2022-08-19] MEDS: 0.9% NaCl Peripheral Flush Adult/Peds IV (09:01)
[2022-08-19] MEDS: Immune Globulin 20 gm Premixed Solution 33 BAG IV (09:01)
[2022-08-19 09:24] LABS: Anion Gap 4 (5-15); BUN 27 mg/dL (7-18); BUN/Creat Ratio 19.4 RATIO (10-20); Calcium,Total 8.8 mg/dL (8.5-10.1); Chloride 108 mmol/L (98-107); Creatinine, Serum 1.39 mg/dL (0.70-1.30); EST Glomerular Filtration Rate 52 mL/min (>60); Est Glom Filt Rate - Afr Amer 63 mL/min (>60); Estimated Creatinine Clearance 38.27 ml/min; Glucose 117 mg/dL (74-106); Potassium 4.2 mmol/L (3.5-5.1); Sodium Level 136 mmol/L (136-145)
[2022-08-19] MEDS: Immune Globulin 10 gm Premixed Solution 132 BAG IV (11:31)
[2022-08-19] MEDS: Immune Globulin 5 GM Premixed Solution 132 BAG IV (12:29)
== END | disposition home or self-care (01) ==
PROVIDERS: PCP Family Medicine Geriatric Medicine; Referring Provider Psychiatry & Neurology Neurology; Visit Provider Psychiatry & Neurology Neurology
DX: G61.81 Chronic inflammatory demyelinating polyneuritis (principal)
CPT/HCPCS: 96365; 96366; 80048; A4216; J1568

== ENCOUNTER 2022-09-30 08:17 | Outpatient (CLI) | payer MEDICARE, BC, SELFPAY ==
[2022-09-30 08:25] VITALS: BP 167/70; PULSE 62; RESP 16; TEMP 35.7; O2SAT 100; BMI 24.3
[2022-09-30] MEDS: Immune Globulin 20 gm Premixed Solution 33 BAG IV (08:37)
[2022-09-30] MEDS: 0.9% NaCl Peripheral Flush Adult/Peds IV (08:38)
[2022-09-30 08:51] LABS: Anion Gap 6 (5-15); BUN 29 mg/dL (7-18); Calcium,Total 8.9 mg/dL (8.5-10.1); Chloride 106 mmol/L (98-107); Creatinine, Serum 1.26 mg/dL (0.70-1.30); EST Glomerular Filtration Rate 58 mL/min (>60); Est Glom Filt Rate - Afr Amer 70 mL/min (>60); Estimated Creatinine Clearance 41.47 ml/min; Glucose 108 mg/dL (74-106); Potassium 3.9 mmol/L (3.5-5.1); Sodium Level 137 mmol/L (136-145)
[2022-09-30] MEDS: Immune Globulin 10 gm Premixed Solution 132 BAG IV (10:55)
[2022-09-30] MEDS: Immune Globulin 5 GM Premixed Solution 132 BAG IV (11:52)
== END 2022-09-30 08:18 | disposition home or self-care (01) ==
LOC: MEDOUTP 08:17
PROVIDERS: PCP Family Medicine Geriatric Medicine; Referring Provider Psychiatry & Neurology Neurology; Visit Provider Psychiatry & Neurology Neurology
DX: G61.81 Chronic inflammatory demyelinating polyneuritis (principal)
CPT/HCPCS: 96365; 80048; A4216; J1568

== ENCOUNTER 2022-11-11 08:22 | Outpatient (CLI) | payer MEDICARE, BC, SELFPAY ==
[2022-11-11 08:32] VITALS: BP 156/64; PULSE 66; RESP 16; TEMP 36.1; O2SAT 97; BMI 24.6
[2022-11-11] MEDS: Immune Globulin 20 gm Premixed Solution 33 BAG IV (09:07)
[2022-11-11 09:31] LABS: Anion Gap 7 (5-15); BUN 24 mg/dL (7-18); BUN/Creat Ratio 17.4 RATIO (10-20); Calcium,Total 8.6 mg/dL (8.5-10.1); Chloride 108 mmol/L (98-107); Creatinine, Serum 1.38 mg/dL (0.70-1.30); EST Glomerular Filtration Rate 52 mL/min (>60); Est Glom Filt Rate - Afr Amer 63 mL/min (>60); Estimated Creatinine Clearance 37.86 ml/min; Glucose 120 mg/dL (74-106); Potassium 4.2 mmol/L (3.5-5.1); Sodium Level 139 mmol/L (136-145)
[2022-11-11] MEDS: Immune Globulin 10 gm Premixed Solution 132 BAG IV (11:43)
[2022-11-11] MEDS: Immune Globulin 5 GM Premixed Solution 132 BAG IV (12:40)
== END 2022-11-11 08:23 | disposition home or self-care (01) ==
LOC: MEDOUTP 08:24
PROVIDERS: PCP Family Medicine Geriatric Medicine; Referring Provider Psychiatry & Neurology Neurology; Visit Provider Psychiatry & Neurology Neurology
DX: G61.81 Chronic inflammatory demyelinating polyneuritis (principal)
CPT/HCPCS: 96365; 96366; 80048; J1568

== ENCOUNTER 2022-12-23 08:31 | Outpatient (CLI) | payer MEDICARE, BC, SELFPAY ==
[2022-12-23 08:40] VITALS: BP 161/62; PULSE 66; RESP 16; TEMP 35.8; O2SAT 95; BMI 25.0
[2022-12-23] MEDS: Immune Globulin 20 gm Premixed Solution 33 BAG IV (08:44)
[2022-12-23 09:05] LABS: Anion Gap 5 (5-15); BUN 22 mg/dL (7-18); BUN/Creat Ratio 14.7 RATIO (10-20); Calcium,Total 8.8 mg/dL (8.5-10.1); Chloride 108 mmol/L (98-107); EST Glomerular Filtration Rate 47 mL/min (>60); Est Glom Filt Rate - Afr Amer 57 mL/min (>60); Estimated Creatinine Clearance 33.66 ml/min; Glucose 115 mg/dL (74-106); Potassium 3.9 mmol/L (3.5-5.1); Sodium Level 138 mmol/L (136-145)
[2022-12-23] MEDS: Immune Globulin 10 gm Premixed Solution 132 BAG IV (11:02)
[2022-12-23] MEDS: Immune Globulin 5 GM Premixed Solution 132 BAG IV (11:54)
[2022-12-23] MEDS: predniSONE 10 MG Tablet PO (11:54)
== END 2022-12-23 08:32 | disposition home or self-care (01) ==
PROVIDERS: PCP Family Medicine Geriatric Medicine; Referring Provider Clinical Nurse Specialist Acute Care; Visit Provider Clinical Nurse Specialist Acute Care
DX: G61.81 Chronic inflammatory demyelinating polyneuritis (principal)
CPT/HCPCS: 96365; 96366; 80048; J1568

== ENCOUNTER 2023-02-03 08:13 | Outpatient (CLI) | payer MEDICARE, BC, SELFPAY ==
[2023-02-03 08:24] VITALS: BP 160/69; PULSE 72; RESP 16; TEMP 36.1; O2SAT 97; BMI 25.0
[2023-02-03] MEDS: 0.9% NaCl Peripheral Flush Adult/Peds IV (08:35)
[2023-02-03] MEDS: Immune Globulin 20 gm Premixed Solution 33 BAG IV (08:44)
[2023-02-03 09:08] LABS: Anion Gap 8 (5-15); BUN 26 mg/dL (7-18); BUN/Creat Ratio 18.8 RATIO (10-20); Calcium,Total 8.7 mg/dL (8.5-10.1); Chloride 107 mmol/L (98-107); Creatinine, Serum 1.38 mg/dL (0.70-1.30); EST Glomerular Filtration Rate 52 mL/min (>60); Est Glom Filt Rate - Afr Amer 63 mL/min (>60); Estimated Creatinine Clearance 36.59 ml/min; Glucose 122 mg/dL (74-106); Potassium 3.6 mmol/L (3.5-5.1); Sodium Level 139 mmol/L (136-145)
[2023-02-03] MEDS: Immune Globulin 10 gm Premixed Solution 132 BAG IV (11:10)
[2023-02-03] MEDS: Immune Globulin 5 GM Premixed Solution 132 BAG IV (11:55)
== END 2023-02-03 08:14 | disposition home or self-care (01) ==
LOC: MEDOUTP 08:13
PROVIDERS: PCP Family Medicine Geriatric Medicine; Referring Provider Clinical Nurse Specialist Acute Care; Visit Provider Clinical Nurse Specialist Acute Care
DX: G61.81 Chronic inflammatory demyelinating polyneuritis (principal)
CPT/HCPCS: 96365; 96366; 80048; A4216; J1568

== ENCOUNTER 2023-03-17 08:18 | Outpatient (CLI) | payer MEDICARE, BC, SELFPAY ==
[2023-03-17 08:33] VITALS: BP 164/73; PULSE 65; RESP 16; TEMP 35.8; O2SAT 98; BMI 24.3
[2023-03-17] MEDS: 0.9% NaCl Peripheral Flush Adult/Peds IV (08:49)
[2023-03-17] MEDS: Immune Globulin 20 gm Premixed Solution 33 BAG IV (08:49)
[2023-03-17 09:17] LABS: Anion Gap 6 (5-15); BUN 19 mg/dL (7-18); BUN/Creat Ratio 14.6 RATIO (10-20); Calcium,Total 8.8 mg/dL (8.5-10.1); Chloride 105 mmol/L (98-107); EST Glomerular Filtration Rate 56 mL/min (>60); Est Glom Filt Rate - Afr Amer 67 mL/min (>60); Estimated Creatinine Clearance 40.19 ml/min; Glucose 116 mg/dL (74-106); Sodium Level 139 mmol/L (136-145)
[2023-03-17] MEDS: Immune Globulin 10 gm Premixed Solution 132 BAG IV (11:10)
[2023-03-17] MEDS: Immune Globulin 5 GM Premixed Solution 132 BAG IV (12:03)
== END 2023-03-17 08:19 | disposition home or self-care (01) ==
PROVIDERS: PCP Family Medicine Geriatric Medicine; Referring Provider Clinical Nurse Specialist Acute Care; Visit Provider Clinical Nurse Specialist Acute Care
DX: G61.81 Chronic inflammatory demyelinating polyneuritis (principal)
CPT/HCPCS: 96365; 96366; 80048; A4216; J1568

== ENCOUNTER 2023-04-28 08:15 | Outpatient (CLI) | payer MEDICARE, BC, SELFPAY ==
[2023-04-28 08:44] VITALS: BP 156/77; PULSE 69; RESP 16; TEMP 35.8; O2SAT 98; BMI 24.3
[2023-04-28] MEDS: Immune Globulin 20 gm Premixed Solution 33 BAG IV (08:48)
[2023-04-28 08:59] LABS: Anion Gap 6 (5-15); BUN 25 mg/dL (7-18); BUN/Creat Ratio 17.6 RATIO (10-20); Chloride 108 mmol/L (98-107); Creatinine, Serum 1.42 mg/dL (0.70-1.30); EST Glomerular Filtration Rate 50 mL/min (>60); Est Glom Filt Rate - Afr Amer 61 mL/min (>60); Glucose 109 mg/dL (74-106); Potassium 3.7 mmol/L (3.5-5.1); Sodium Level 140 mmol/L (136-145)
[2023-04-28] MEDS: Immune Globulin 10 gm Premixed Solution 132 BAG IV (11:32)
[2023-04-28] MEDS: Immune Globulin 5 GM Premixed Solution 132 BAG IV (12:09)
[2023-04-28 12:42] VITALS: BP 160/66; PULSE 72; RESP 16; TEMP 36.1; O2SAT 98
== END 2023-04-28 08:16 | disposition home or self-care (01) ==
PROVIDERS: PCP Family Medicine Geriatric Medicine; Referring Provider Clinical Nurse Specialist Acute Care; Visit Provider Clinical Nurse Specialist Acute Care
DX: G61.81 Chronic inflammatory demyelinating polyneuritis (principal)
CPT/HCPCS: 96365; 96366; 36415; 80048; A4216; J1568

== ENCOUNTER 2023-06-09 08:12 | Outpatient (CLI) | payer MEDICARE, BC, SELFPAY ==
[2023-06-09 08:30] VITALS: BMI 24.3
[2023-06-09] MEDS: 0.9% NaCl Peripheral Flush Adult/Peds IV (08:34)
[2023-06-09] MEDS: Immune Globulin 20 gm Premixed Solution 33 BAG IV (08:34)
--- OUTSIDE RECORDS SUMMARY | 2023-06-09 08:47 | XMS RPT_ITS | CCD ---
Author Name Unknown Address [address] [place] [address] [id number] [place] [address] Organization [facility] Care Team Providers Care Entertainment Production Professional Name Role Phone [facility] Attending Unavailable Encounters Encounter Date Encounter Type Care Provider Facility Start: 05-31-2023 End: 05-31-2023 ambulatory [facility] Not Available Payers Date Payer Category Payer Unknown [id number] 2002 Medicare [id number] 1937 Unknown [id number] Summary Purpose Family History No Family History Records Found Advance Directives No Advanced Directives Records Found Additional Source Comments (unrecognized sect ion and content) No Status Records Found INFORMATION SOURCE (unrecogn ized section and content) FOR RECORDS PERTAINING TO PATIENTS WHO ARE OR HAVE BEEN ENROLLED IN A CHEMICAL DEPENDENCY/SUBSTANCEABUSE PROGRAM, SOME INFORMATION MAY BE OMITTED. This clinical summary was aggregated from multiple sources. Caution should be exercised in using it in the provision of clinical care. This summary normalizes information from multiple sources, and as a consequence, information in this document may materially change the coding, format and clinical context of patient data. In addition, data may be omitted in some cases. CLINICAL DECISIONS SHOULD BE BASED ON THE PRIMARY CLINICAL RECORDS. [facility]. provides no warranty or guarantee of the accuracy or completeness of information in this document.
[2023-06-09 08:55] LABS: Anion Gap 5 (5-15); BUN 21 mg/dL (7-18); BUN/Creat Ratio 16.4 RATIO (10-20); Calcium,Total 8.6 mg/dL (8.5-10.1); Chloride 106 mmol/L (98-107); Creatinine, Serum 1.28 mg/dL (0.70-1.30); EST Glomerular Filtration Rate 57 mL/min (>60); Est Glom Filt Rate - Afr Amer 69 mL/min (>60); Estimated Creatinine Clearance 40.82 ml/min; Glucose 112 mg/dL (74-106); Potassium 4.1 mmol/L (3.5-5.1); Sodium Level 139 mmol/L (136-145)
[2023-06-09] MEDS: Immune Globulin 10 gm Premixed Solution 132 BAG IV (10:59)
[2023-06-09] MEDS: Immune Globulin 5 GM Premixed Solution 132 BAG IV (11:52)
== END 2023-06-09 08:13 | disposition home or self-care (01) ==
LOC: MEDOUTP 08:14
PROVIDERS: PCP Family Medicine Geriatric Medicine; Referring Provider Clinical Nurse Specialist Acute Care; Visit Provider Clinical Nurse Specialist Acute Care
DX: G61.81 Chronic inflammatory demyelinating polyneuritis (principal)
CPT/HCPCS: 96365; 96366; 80048; A4216; J1568

== ENCOUNTER 2023-07-21 08:27 | Outpatient (CLI) | payer MEDICARE, BC, SELFPAY ==
[2023-07-21 08:51] VITALS: BP 170/70; PULSE 67; RESP 16; TEMP 36.3; BMI 24.3
[2023-07-21] MEDS: 0.9% NaCl Peripheral Flush Adult/Peds IV (08:54)
[2023-07-21] MEDS: Immune Globulin 20 gm Premixed Solution 33 BAG IV (08:54)
[2023-07-21 09:44] LABS: Anion Gap 6 (5-15); BUN 22 mg/dL (7-18); BUN/Creat Ratio 17.3 RATIO (10-20); Calcium,Total 8.5 mg/dL (8.5-10.1); Chloride 106 mmol/L (98-107); Creatinine, Serum 1.27 mg/dL (0.70-1.30); EST Glomerular Filtration Rate 57 mL/min (>60); Est Glom Filt Rate - Afr Amer 69 mL/min (>60); Estimated Creatinine Clearance 41.14 ml/min; Glucose 115 mg/dL (74-106); Potassium 4.1 mmol/L (3.5-5.1); Sodium Level 139 mmol/L (136-145)
[2023-07-21] MEDS: Immune Globulin 10 gm Premixed Solution 165 BAG IV (11:18)
[2023-07-21] MEDS: Immune Globulin 5 GM Premixed Solution 132 BAG IV (12:07)
== END 2023-07-21 08:28 | disposition home or self-care (01) ==
LOC: MEDOUTP 08:27
PROVIDERS: PCP Family Medicine Geriatric Medicine; Referring Provider Clinical Nurse Specialist Acute Care; Visit Provider Clinical Nurse Specialist Acute Care
DX: G61.81 Chronic inflammatory demyelinating polyneuritis (principal)
CPT/HCPCS: 96365; 96366; 80048; A4216; J1568

== ENCOUNTER 2023-09-01 08:17 | Outpatient (CLI) | payer MEDICARE, BC, SELFPAY ==
[2023-09-01] MEDS: 0.9% NaCl Peripheral Flush Adult/Peds IV (08:58)
[2023-09-01] MEDS: Immune Globulin 20 gm Premixed Solution 33 BAG IV (09:00)
[2023-09-01 09:38] LABS: Anion Gap 7 (5-15); BUN 23 mg/dL (7-18); BUN/Creat Ratio 15.8 RATIO (10-20); Calcium,Total 8.5 mg/dL (8.5-10.1); Chloride 104 mmol/L (98-107); Creatinine, Serum 1.46 mg/dL (0.70-1.30); EST Glomerular Filtration Rate 49 mL/min (>60); Est Glom Filt Rate - Afr Amer 59 mL/min (>60); Glucose 108 mg/dL (74-106); Potassium 4.6 mmol/L (3.5-5.1); Sodium Level 137 mmol/L (136-145)
[2023-09-01] MEDS: Immune Globulin 10 gm Premixed Solution 132 BAG IV (11:16)
[2023-09-01] MEDS: Immune Globulin 5 GM Premixed Solution 132 BAG IV (12:06)
[2023-09-01 12:39] VITALS: BP 166/69
== END 2023-09-01 08:18 | disposition home or self-care (01) ==
LOC: MEDOUTP 08:17
PROVIDERS: PCP Family Medicine Geriatric Medicine; Referring Provider Clinical Nurse Specialist Acute Care; Visit Provider Clinical Nurse Specialist Acute Care
DX: G61.81 Chronic inflammatory demyelinating polyneuritis (principal)
CPT/HCPCS: 96365; 96366; 80048; A4216; J1568

== ENCOUNTER 2023-10-13 08:11 | Outpatient (CLI) | payer MEDICARE, BC, SELFPAY ==
[2023-10-13 08:35] VITALS: BP 153/58; PULSE 66; RESP 16; TEMP 36.1; O2SAT 98; BMI 25.0
[2023-10-13] MEDS: Immune Globulin 20 gm 20 GM/200 ML VIAL IV (08:44)
[2023-10-13] MEDS: 0.9% NaCl Peripheral Flush Adult/Peds IV ×2 (08:53→11:41)
[2023-10-13 09:04] LABS: Anion Gap 8 (5-15); BUN 22 mg/dL (7-18); BUN/Creat Ratio 17.2 RATIO (10-20); Calcium,Total 8.9 mg/dL (8.5-10.1); Chloride 104 mmol/L (98-107); Creatinine, Serum 1.28 mg/dL (0.70-1.30); EST Glomerular Filtration Rate 57 mL/min (>60); Est Glom Filt Rate - Afr Amer 69 mL/min (>60); Estimated Creatinine Clearance 40.08 ml/min; Glucose 121 mg/dL (74-106); Potassium 4.2 mmol/L (3.5-5.1); Sodium Level 138 mmol/L (136-145)
[2023-10-13] MEDS: Immune Globulin 10 gm 10 GM/100 ML VIAL IV (11:06)
[2023-10-13] MEDS: Immune Globulin 5 GM 5 GM/50 ML VIAL IV (12:10)
== END 2023-10-13 23:59 | disposition home or self-care (01) ==
LOC: MEDOUTP 08:11
PROVIDERS: PCP Family Medicine Geriatric Medicine; Referring Provider Clinical Nurse Specialist Acute Care; Visit Provider Clinical Nurse Specialist Acute Care
DX: G61.81 Chronic inflammatory demyelinating polyneuritis (principal)
CPT/HCPCS: 96365; 96366; 36415; 80048; A4216; J1568

== ENCOUNTER 2023-11-24 08:12 | Outpatient (CLI) | payer MEDICARE, BC, SELFPAY ==
[2023-11-24] MEDS: predniSONE 10 MG Tablet PO (08:55)
[2023-11-24 09:00] VITALS: BP 146/58; PULSE 72; RESP 16; TEMP 36.3; O2SAT 94; BMI 24.6
[2023-11-24 09:15] LABS: Anion Gap 6 (5-15); BUN 27 mg/dL (7-18); Calcium,Total 8.5 mg/dL (8.5-10.1); Chloride 106 mmol/L (98-107); Creatinine, Serum 1.35 mg/dL (0.70-1.30); EST Glomerular Filtration Rate 53 mL/min (>60); Est Glom Filt Rate - Afr Amer 64 mL/min (>60); Glucose 147 mg/dL (74-106); Potassium 4.1 mmol/L (3.5-5.1); Sodium Level 138 mmol/L (136-145)
[2023-11-24] MEDS: Immune Globulin 20 gm 20 GM/200 ML VIAL IV (09:28)
[2023-11-24] MEDS: Immune Globulin 10 gm 10 GM/100 ML VIAL IV (11:58)
[2023-11-24 12:00] VITALS: BP 152/68; PULSE 69; RESP 16; TEMP 36.3
[2023-11-24] MEDS: Immune Globulin 5 GM 5 GM/50 ML VIAL IV (12:51)
== END 2023-11-24 23:59 | disposition home or self-care (01) ==
LOC: MEDOUTP 08:13
PROVIDERS: PCP Family Medicine Geriatric Medicine; Referring Provider Clinical Nurse Specialist Acute Care; Visit Provider Clinical Nurse Specialist Acute Care
DX: G61.81 Chronic inflammatory demyelinating polyneuritis (principal)
CPT/HCPCS: 96365; 96366; 80048; A4216; J1568

== ENCOUNTER 2024-01-05 07:58 | Outpatient (CLI) | payer MEDICARE, BC, SELFPAY ==
[2024-01-05] MEDS: Acetaminophen 325 MG Tablet 650 MG PO (08:47)
[2024-01-05 08:51] VITALS: BP 143/65; RESP 16; TEMP 36.1; O2SAT 98; BMI 24.6
[2024-01-05] MEDS: 0.9% NaCl Peripheral Flush Adult/Peds IV (09:20)
[2024-01-05] MEDS: Immune Globulin 20 gm 20 GM/200 ML VIAL IV (09:22)
[2024-01-05 10:00] LABS: Anion Gap 8 (5-15); BUN 26 mg/dL (7-18); BUN/Creat Ratio 18.1 RATIO (10-20); Calcium,Total 8.3 mg/dL (8.5-10.1); Chloride 108 mmol/L (98-107); Creatinine, Serum 1.44 mg/dL (0.70-1.30); EST Glomerular Filtration Rate 49 mL/min (>60); Est Glom Filt Rate - Afr Amer 60 mL/min (>60); Estimated Creatinine Clearance 35.63 ml/min; Glucose 125 mg/dL (74-106); Potassium 4.1 mmol/L (3.5-5.1); Sodium Level 139 mmol/L (136-145)
[2024-01-05] MEDS: Immune Globulin 10 gm 10 GM/100 ML VIAL IV (11:45)
[2024-01-05] MEDS: Immune Globulin 5 GM 5 GM/50 ML VIAL IV (12:42)
== END 2024-01-05 23:59 | disposition home or self-care (01) ==
LOC: MEDOUTP 07:59
PROVIDERS: PCP Family Medicine Geriatric Medicine; Referring Provider Clinical Nurse Specialist Acute Care; Visit Provider Clinical Nurse Specialist Acute Care
DX: G61.81 Chronic inflammatory demyelinating polyneuritis (principal)
CPT/HCPCS: 96365; 96366; 80048; A4216; J1568

== ENCOUNTER 2024-02-16 08:25 | Outpatient (CLI) | payer MEDICARE, BC, SELFPAY ==
[2024-02-16 08:40] VITALS: BMI 24.6
[2024-02-16] MEDS: Immune Globulin 20 gm 20 GM/200 ML VIAL IV (08:58)
[2024-02-16] MEDS: 0.9% NaCl Peripheral Flush Adult/Peds IV (09:03)
[2024-02-16 10:04] LABS: Anion Gap 6 (5-15); BUN 26 mg/dL (7-18); BUN/Creat Ratio 18.3 RATIO (10-20); Calcium,Total 8.9 mg/dL (8.5-10.1); Chloride 109 mmol/L (98-107); Creatinine, Serum 1.42 mg/dL (0.70-1.30); EST Glomerular Filtration Rate 50 mL/min (>60); Est Glom Filt Rate - Afr Amer 61 mL/min (>60); Estimated Creatinine Clearance 36.13 ml/min; Glucose 101 mg/dL (74-106); Potassium 3.8 mmol/L (3.5-5.1); Sodium Level 140 mmol/L (136-145)
[2024-02-16] MEDS: Immune Globulin 10 gm 10 GM/100 ML VIAL IV (11:19)
[2024-02-16] MEDS: Immune Globulin 5 GM 5 GM/50 ML VIAL IV (12:11)
== END 2024-02-16 23:59 | disposition home or self-care (01) ==
LOC: MEDOUTP 08:25
PROVIDERS: PCP Family Medicine Geriatric Medicine; Referring Provider Nurse Practitioner Family; Visit Provider Nurse Practitioner Family
DX: G61.81 Chronic inflammatory demyelinating polyneuritis (principal)
CPT/HCPCS: 96365; 96366 ×4; 80048; A4216; J1568

== ENCOUNTER 2024-03-29 08:08 | Outpatient (CLI) | payer MEDICARE, BC, SELFPAY ==
[2024-03-29 08:45] VITALS: BP 120/66; PULSE 68; RESP 16; TEMP 36.6; O2SAT 97; BMI 24.6
[2024-03-29] MEDS: Immune Globulin 20 gm 20 GM/200 ML VIAL IV (08:56)
[2024-03-29] MEDS: 0.9% NaCl Peripheral Flush Adult/Peds IV (09:03)
[2024-03-29 09:52] LABS: Anion Gap 7 (5-15); BUN 22 mg/dL (7-18); BUN/Creat Ratio 16.3 RATIO (10-20); Calcium,Total 8.5 mg/dL (8.5-10.1); Chloride 106 mmol/L (98-107); Creatinine, Serum 1.35 mg/dL (0.70-1.30); EST Glomerular Filtration Rate 53 mL/min (>60); Est Glom Filt Rate - Afr Amer 64 mL/min (>60); Glucose 135 mg/dL (74-106); Potassium 3.8 mmol/L (3.5-5.1); Sodium Level 139 mmol/L (136-145)
[2024-03-29] MEDS: Immune Globulin 10 gm 10 GM/100 ML VIAL IV (11:26)
[2024-03-29] MEDS: Immune Globulin 5 GM 5 GM/50 ML VIAL IV (12:18)
== END 2024-03-29 23:59 | disposition home or self-care (01) ==
LOC: MEDOUTP 08:08
PROVIDERS: PCP Family Medicine Geriatric Medicine; Referring Provider Nurse Practitioner Family; Visit Provider Nurse Practitioner Family
DX: G61.81 Chronic inflammatory demyelinating polyneuritis (principal)
CPT/HCPCS: 96365; 96366; 80048; A4216; J1568

== ENCOUNTER 2024-05-10 08:17 | Outpatient (CLI) | payer MEDICARE, BC, SELFPAY ==
[2024-05-10 08:46] VITALS: BP 128/67; PULSE 70; RESP 16; TEMP 35.8; O2SAT 100
[2024-05-10] MEDS: 0.9% NaCl Peripheral Flush Adult/Peds IV (08:52)
[2024-05-10] MEDS: Immune Globulin 20 gm 20 GM/200 ML VIAL IV (08:53)
[2024-05-10 10:31] LABS: Anion Gap 6 (5-15); BUN 26 mg/dL (7-18); BUN/Creat Ratio 18.4 RATIO (10-20); Calcium,Total 9.4 mg/dL (8.5-10.1); Chloride 106 mmol/L (98-107); Creatinine, Serum 1.41 mg/dL (0.70-1.30); EST Glomerular Filtration Rate 51 mL/min (>60); Est Glom Filt Rate - Afr Amer 61 mL/min (>60); Glucose 97 mg/dL (74-106); Potassium 3.7 mmol/L (3.5-5.1); Sodium Level 138 mmol/L (136-145)
[2024-05-10] MEDS: Immune Globulin 10 gm 10 GM/100 ML VIAL IV (11:24)
[2024-05-10] MEDS: Immune Globulin 5 GM 5 GM/50 ML VIAL IV (12:19)
== END 2024-05-10 23:59 | disposition home or self-care (01) ==
LOC: MEDOUTP 08:22
PROVIDERS: PCP Family Medicine Geriatric Medicine; Referring Provider Nurse Practitioner Family; Visit Provider Nurse Practitioner Family
DX: G61.81 Chronic inflammatory demyelinating polyneuritis (principal)
CPT/HCPCS: 96365; 96366; 80048; A4216; J1568

== ENCOUNTER 2024-06-21 08:21 | Outpatient (CLI) | payer MEDICARE, BC, SELFPAY ==
[2024-06-21] MEDS: Immune Globulin 20 gm 20 GM/200 ML VIAL IV (09:00)
[2024-06-21 09:04] VITALS: BMI 24.6
[2024-06-21 09:31] LABS: Anion Gap 11 (5-15); BUN 32 mg/dL (7-18); BUN/Creat Ratio 20.5 RATIO (10-20); Calcium,Total 9.1 mg/dL (8.5-10.1); Chloride 105 mmol/L (98-107); Creatinine, Serum 1.56 mg/dL (0.70-1.30); EST Glomerular Filtration Rate 45 mL/min (>60); Est Glom Filt Rate - Afr Amer 54 mL/min (>60); Estimated Creatinine Clearance 32.88 ml/min; Glucose 109 mg/dL (74-106); Potassium 4.1 mmol/L (3.5-5.1); Sodium Level 137 mmol/L (136-145)
[2024-06-21] MEDS: Immune Globulin 10 gm 10 GM/100 ML VIAL IV (11:26)
[2024-06-21] MEDS: Immune Globulin 5 GM 5 GM/50 ML VIAL IV (12:20)
== END 2024-06-21 23:59 | disposition home or self-care (01) ==
LOC: MEDOUTP 08:21
PROVIDERS: PCP Family Medicine Geriatric Medicine; Referring Provider Nurse Practitioner Family; Visit Provider Nurse Practitioner Family
DX: G61.81 Chronic inflammatory demyelinating polyneuritis (principal)
CPT/HCPCS: 96365; 96366; 80048; J1568

== ENCOUNTER 2024-08-02 08:17 | Outpatient (CLI) | payer MEDICARE, BC, SELFPAY ==
[2024-08-02 08:40] VITALS: BP 131/74; PULSE 71; RESP 16; TEMP 36.3; O2SAT 99; BMI 24.6
[2024-08-02] MEDS: Immune Globulin 20 gm 20 GM/200 ML VIAL IV (08:45)
[2024-08-02 09:36] LABS: Anion Gap 13 (5-15); BUN 26 mg/dL (4-19); BUN/Creat Ratio 18.8 RATIO (10-20); Carbon Dioxide 22.5 mmol/L (21.0-32.0); Chloride 103 mmol/L (98-108); Creatinine, Serum 1.37 mg/dL (0.70-1.20); EST Glomerular Filtration Rate 50 (>60); Estimated Creatinine Clearance 37.45 ml/min (50-250); Glucose 112 mg/dL (70-99); Potassium 4.2 mmol/L (3.3-5.1); Sodium Level 138 mmol/L (133-145)
[2024-08-02] MEDS: Immune Globulin 10 gm 10 GM/100 ML VIAL IV (10:58)
[2024-08-02] MEDS: Immune Globulin 5 GM 5 GM/50 ML VIAL IV (11:49)
== END 2024-08-02 23:59 | disposition home or self-care (01) ==
LOC: MEDOUTP 08:17
PROVIDERS: PCP Family Medicine Geriatric Medicine; Referring Provider Nurse Practitioner Family; Visit Provider Nurse Practitioner Family
DX: G61.81 Chronic inflammatory demyelinating polyneuritis (principal)
CPT/HCPCS: 96365; 96366; 80048; A4216; J1568

== ENCOUNTER 2024-09-13 08:19 | Outpatient (CLI) | payer MEDICARE, BC, SELFPAY ==
[2024-09-13 08:47] VITALS: BP 139/51; PULSE 66; RESP 16; TEMP 36; O2SAT 98; BMI 24.3
[2024-09-13] MEDS: Immune Globulin 20 gm 20 GM/200 ML VIAL IV (08:50)
[2024-09-13] MEDS: 0.9% NaCl Peripheral Flush Adult IV (08:50)
[2024-09-13 09:46] LABS: Anion Gap 13 (5-15); BUN 25 mg/dL (4-19); BUN/Creat Ratio 17.6 RATIO (10-20); Calcium,Total 8.7 mg/dL (7.6-11.0); Carbon Dioxide 20.5 mmol/L (21.0-32.0); Chloride 104 mmol/L (98-108); EST Glomerular Filtration Rate 49 (>60); Estimated Creatinine Clearance 36.64 ml/min (50-250); Glucose 112 mg/dL (70-99); Potassium 4.3 mmol/L (3.3-5.1); Sodium Level 137 mmol/L (133-145)
[2024-09-13] MEDS: Immune Globulin 10 gm 10 GM/100 ML VIAL IV (11:18)
[2024-09-13] MEDS: Immune Globulin 5 GM 5 GM/50 ML VIAL IV (12:04)
== END 2024-09-13 23:59 | disposition home or self-care (01) ==
LOC: MEDOUTP 08:19
PROVIDERS: PCP Family Medicine Geriatric Medicine; Referring Provider Nurse Practitioner Family; Visit Provider Nurse Practitioner Family
DX: G61.81 Chronic inflammatory demyelinating polyneuritis (principal)
CPT/HCPCS: 96365; 96366; 80048; A4216; J1568

== ENCOUNTER 2024-10-25 08:24 | Outpatient (CLI) | payer MEDICARE, BC, SELFPAY ==
[2024-10-25] MEDS: Immune Globulin 20 gm 20 GM/200 ML VIAL IV (08:56)
[2024-10-25 08:57] VITALS: BP 140/58; PULSE 66; RESP 16; TEMP 35.7; O2SAT 96
[2024-10-25] MEDS: 0.9% NaCl Peripheral Flush Adult IV (08:57)
[2024-10-25 09:47] LABS: Anion Gap 13 (5-15); BUN 27 mg/dL (4-19); BUN/Creat Ratio 22.3 RATIO (10-20); Calcium,Total 8.9 mg/dL (7.6-11.0); Carbon Dioxide 21.5 mmol/L (21.0-32.0); Chloride 103 mmol/L (98-108); EST Glomerular Filtration Rate 59 (>60); Glucose 106 mg/dL (70-99); Potassium 3.9 mmol/L (3.3-5.1); Sodium Level 137 mmol/L (133-145)
[2024-10-25] MEDS: Immune Globulin 10 gm 10 GM/100 ML VIAL IV (11:18)
[2024-10-25] MEDS: Immune Globulin 5 GM 5 GM/50 ML VIAL IV (12:12)
== END 2024-10-25 23:59 | disposition home or self-care (01) ==
LOC: MEDOUTP 08:24
PROVIDERS: PCP Family Medicine Geriatric Medicine; Referring Provider Nurse Practitioner Family; Visit Provider Nurse Practitioner Family
DX: G61.81 Chronic inflammatory demyelinating polyneuritis (principal)
CPT/HCPCS: 96365; 96366; 36415; 80048; A4216; J1568

== ENCOUNTER 2024-12-06 08:25 | Outpatient (CLI) | payer MEDICARE, BC, SELFPAY ==
[2024-12-06 08:50] VITALS: BP 131/53; PULSE 65; RESP 16; TEMP 36.4; O2SAT 98; BMI 22.8
[2024-12-06] MEDS: 0.9% NaCl Peripheral Flush Adult IV (08:52)
[2024-12-06] MEDS: Immune Globulin 20 gm 20 GM/200 ML VIAL IV (08:52)
[2024-12-06 09:47] LABS: Anion Gap 13 (5-15); BUN 26 mg/dL (4-19); BUN/Creat Ratio 19.2 RATIO (10-20); Calcium,Total 8.9 mg/dL (7.6-11.0); Carbon Dioxide 22.8 mmol/L (21.0-32.0); Chloride 102 mmol/L (98-108); Estimated Creatinine Clearance 36.56 ml/min (50-250); Glucose 115 mg/dL (70-99); Potassium 4.4 mmol/L (3.3-5.1)
[2024-12-06] MEDS: Immune Globulin 10 gm 10 GM/100 ML VIAL IV (11:09)
[2024-12-06] MEDS: Immune Globulin 5 GM 5 GM/50 ML VIAL IV (11:50)
[2024-12-06 12:21] VITALS: BP 144/56; PULSE 68; RESP 16; TEMP 36.8; O2SAT 98
== END 2024-12-06 23:59 | disposition home or self-care (01) ==
PROVIDERS: PCP Family Medicine Geriatric Medicine; Referring Provider Nurse Practitioner Family; Visit Provider Nurse Practitioner Family
DX: G61.81 Chronic inflammatory demyelinating polyneuritis (principal)
CPT/HCPCS: 96365; 96366; 80048; A4216; J1568

== ENCOUNTER 2025-01-17 08:34 | Outpatient (CLI) | payer MEDICARE, BC, SELFPAY ==
[2025-01-17 08:43] VITALS: BP 137/58; PULSE 65; RESP 16; TEMP 35.6; O2SAT 97; BMI 22.8
[2025-01-17] MEDS: Immune Globulin 20 gm 20 GM/200 ML VIAL IV (08:54)
[2025-01-17] MEDS: Immune Globulin 10 gm 10 GM/100 ML VIAL IV (11:28)
[2025-01-17] MEDS: Immune Globulin 5 GM 5 GM/50 ML VIAL IV (12:21)
== END 2025-01-17 23:59 | disposition home or self-care (01) ==
LOC: MEDOUTP 08:35
PROVIDERS: PCP Family Medicine Geriatric Medicine; Referring Provider Psychiatry & Neurology Neurology; Visit Provider Psychiatry & Neurology Neurology
DX: G61.81 Chronic inflammatory demyelinating polyneuritis (principal)
CPT/HCPCS: 96365; 96366; J1568

== ENCOUNTER 2025-02-28 08:37 | Outpatient (CLI) | payer MEDICARE, BC, SELFPAY ==
[2025-02-28 09:06] VITALS: BP 103/71; PULSE 75; RESP 16; TEMP 36.2; O2SAT 95; BMI 23.4
[2025-02-28] MEDS: 0.9% NaCl Peripheral Flush Adult IV (09:35)
[2025-02-28] MEDS: Immune Globulin 20 gm 20 GM/200 ML VIAL IV (09:35)
[2025-02-28] MEDS: Immune Globulin 10 gm 10 GM/100 ML VIAL IV (12:01)
[2025-02-28] MEDS: Immune Globulin 5 GM 5 GM/50 ML VIAL IV (12:48)
== END 2025-02-28 23:59 | disposition home or self-care (01) ==
LOC: MEDOUTP 08:38
PROVIDERS: PCP Family Medicine Geriatric Medicine; Referring Provider Psychiatry & Neurology Neurology; Visit Provider Nurse Practitioner Family
DX: G61.81 Chronic inflammatory demyelinating polyneuritis (principal)
CPT/HCPCS: 96365; 96366; A4216; J1568

== ENCOUNTER 2025-04-11 08:26 | Outpatient (CLI) | payer MEDICARE, BC, SELFPAY ==
[2025-04-11 08:45] VITALS: BP 133/61; PULSE 69; RESP 16; TEMP 36.6; O2SAT 97; BMI 22.1
[2025-04-11] MEDS: Immune Globulin 20 gm 20 GM/200 ML VIAL IV (09:20)
[2025-04-11] MEDS: 0.9% NaCl Peripheral Flush Adult IV (09:28)
[2025-04-11] MEDS: Immune Globulin 10 gm 10 GM/100 ML VIAL IV (11:32)
[2025-04-11] MEDS: Immune Globulin 5 GM 5 GM/50 ML VIAL IV (12:25)
== END 2025-04-11 23:59 | disposition home or self-care (01) ==
LOC: MEDOUTP 08:26
PROVIDERS: PCP Family Medicine Geriatric Medicine; Referring Provider Psychiatry & Neurology Neurology; Visit Provider Psychiatry & Neurology Neurology
DX: G61.81 Chronic inflammatory demyelinating polyneuritis (principal)
CPT/HCPCS: 96365; 96366; A4216; J1568